=== PATIENT | female | born 1965 ===

== ENCOUNTER → 2020-05-03 11:39 | Outpatient (BNVA) | payer MEDICAID, SELFPAY | PROVIDERS: PCP Internal Medicine; Referring Provider Internal Medicine; Visit Provider Student in an Organized Health Care Education/Training Program | DX: M25.50 Pain in unspecified joint (principal) | CPT/HCPCS: 99212 ==

== ENCOUNTER 2020-05-03 12:21 | Outpatient (REF) | payer MEDICAID, SELFPAY ==
--- NOTE | 2020-05-03 12:41 | XR_ITS ---
EXAMINATION: XR HIP, RIGHT CLINICAL INFORMATION: Pain COMPARISON: None TECHNIQUE: Two views of the right hip. FINDINGS: There is no fracture or dislocation. The right femoral head articulates appropriately with the acetabulum. The joint space is maintained. The right hemipelvis is intact. Surgical clips overlie the right lower quadrant. XR/XR hip RT min 2V IMPRESSION: Normal appearance of the right hip.
[2020-05-03 13:05] LABS: MANUAL DIFF FLAG NO
[2020-05-03 13:09] LABS: Basophils Absolute Auto 0.1 X10*3/uL (0.0-0.2); Basophils Percent Auto 1.2 % (0-2); Eosinophils Absolute Auto 0.1 X10*3/uL (0.0-0.4); Hematocrit 42.2 % (37-47); Hemoglobin 14.3 g/dl (12.0-16.0); Imm Gran Abs Auto 0.02 X10*3/uL (0.00-0.03); Imm Gran Pct Auto 0.2 % (0.0-0.4); Lymphocytes Percent Auto 32.6 % (20-40); Mean Corpuscular HGB Conc 33.9 g/dl (31.0-35.0); Mean Corpuscular Hemoglobin 30.1 pg (27.0-33.0); Mean Corpuscular Volume 88.8 fL (80-98); Mean Platelet Volume 9.6 fL (9.4-12.3); Monocytes Absolute Auto 0.9 X10*3/uL (0.1-1.2); Monocytes Percent Auto 9.9 % (2-11); Neutrophils Percent Auto 55.1 % (45-73); Platelet Count 331 X10*3/uL (160-400); Red Blood Count 4.75 X10*6/uL (4.20-5.50); Red Cell Distribution Width 14.2 % (11.0-16.0); White Blood Count 9.1 X10*3/uL (4.8-10.8)
[2020-05-03 13:45] LABS: Alanine Aminotransferase 17 U/L (0-31); Albumin Level 4.4 g/dL (3.5-5.0); Alkaline Phosphatase 92 U/L (39-117); Anion Gap 13 (12-20); Aspartate Amino Transferase 17 U/L (5-31); Bilirubin Total 0.4 mg/dL (0.0-1.0); Blood Urea Nitrogen 11 mg/dL (9-16); C Reactive Protein 0.42 mg/dL (< or = 0.50); Calcium 9.2 mg/dL (8.4-10.2); Carbon Dioxide 26 mmol/L (22-29); Chloride 104 mmol/L (96-108); Estimated Glomerular Filt Rate > 60; Glucose Random 98 mg/dL (60-115); Potassium 4.6 mmol/l (3.3-5.1); Sodium 138 mmol/L (135-145); Total Protein 7.3 g/dL (6.5-8.0)
[2020-05-03 14:14] LABS: Erythrocyte Sedimentation Rate 23 MM/HR (0-20)
== END 2020-05-03 12:22 | disposition home or self-care (01) ==
LOC: HO.LAB 12:21
PROVIDERS: PCP Internal Medicine; Visit Provider Student in an Organized Health Care Education/Training Program
DX: M25.50 Pain in unspecified joint (principal)
CPT/HCPCS: 36415; 73502; 80053; 85025; 85652; 86140

== ENCOUNTER 2020-08-24 08:52 | Outpatient (REF) | payer MEDICAID, SELFPAY ==
[2020-08-24 10:06] LABS: Estimated Average Glucose 117 mg/dL; Hemoglobin A1c % 5.7 %
[2020-08-24 10:22] LABS: Alanine Aminotransferase 20 U/L (0-31); Albumin Level 4.5 g/dL (3.5-5.0); Alkaline Phosphatase 90 U/L (39-117); Anion Gap 18 (12-20); Aspartate Amino Transferase 18 U/L (5-31); Bilirubin Total 0.5 mg/dL (0.0-1.0); Blood Urea Nitrogen 16 mg/dL (9-16); Calcium 9.5 mg/dL (8.4-10.2); Carbon Dioxide 27 mmol/L (22-29); Chloride 100 mmol/L (96-108); Cholesterol 234 mg/dL; Estimated Glomerular Filt Rate > 60; Glucose Random 110 mg/dL (60-115); HDL Cholesterol 49 mg/dL; LDL Cholesterol Calculated 160 mg/dl; Potassium 3.7 mmol/L (3.3-5.1); Sodium 141 mmol/L (135-145); Total Protein 7.6 g/dL (6.5-8.0); Triglycerides 127 mg/dL
== END 2020-08-24 08:53 | disposition home or self-care (01) ==
LOC: HO.LAB 08:52
PROVIDERS: PCP Internal Medicine; Visit Provider Internal Medicine
DX: E78.00 Pure hypercholesterolemia, unspecified (principal); I10 Essential (primary) hypertension; J45.909 Unspecified asthma, uncomplicated; M94.0 Chondrocostal junction syndrome [Tietze]
CPT/HCPCS: 36415; 80053; 80061; 83036

== ENCOUNTER 2020-10-05 14:58 | Outpatient (REF) | payer MEDICAID, SELFPAY ==
--- NOTE | ~2020-10-05 | MM_ITS ---
EXAMINATION: MM SCREENING DIGITAL BREAST TOMOSYNTHESIS, BILATERAL CLINICAL INFORMATION: Screening. Asymptomatic. The lifetime risk of breast cancer based on the Tyrer-Cuzick Model is 10%. COMPARISON: Mammography: 01/04/2018, 09/10/2016, 08/29/2015 TECHNIQUE: Digital breast tomosynthesis is performed in both the craniocaudal and mediolateral oblique views along with computer-aided detection (CAD). Synthesized 2D images are generated from the tomosynthesis. FINDINGS: There are scattered areas of fibroglandular density (ACR BI-RADS breast composition Category b). There are no significant masses, abnormal calcifications, or other abnormalities. The axilla and skin contours are unremarkable. MM/MM tomosynthesis screening BI IMPRESSION: No mammographic evidence of malignancy. ASSESSMENT: BI-RADS 1: Negative RECOMMENDATION: Routine annual mammography screening. This patient's information was entered into a reminder system with a target due date for their next mammogram.
== END 2020-10-05 14:59 | disposition home or self-care (01) ==
LOC: HO.MAMMO 14:58
PROVIDERS: PCP Internal Medicine; Visit Provider Internal Medicine
DX: Z12.31 Encounter for screening mammogram for malignant neoplasm of breast (principal)
CPT/HCPCS: 77063; 77067

== ENCOUNTER → 2020-10-12 15:47 | Outpatient (BNVA) | payer MEDICAID, SELFPAY | PROVIDERS: PCP Internal Medicine; Visit Provider Student in an Organized Health Care Education/Training Program | DX: M47.812 Spondylosis without myelopathy or radiculopathy, cervical region (principal) | CPT/HCPCS: 99212 ==

== ENCOUNTER 2020-11-29 13:46 | Outpatient (REF) | payer MEDICAID, SELFPAY ==
[2020-11-29 14:10] LABS: MANUAL DIFF FLAG NO
[2020-11-29 14:12] LABS: Basophils Absolute Auto 0.1 X10*3/uL (0.0-0.2); Basophils Percent Auto 0.9 % (0-2); Eosinophils Absolute Auto 0.1 X10*3/uL (0.0-0.4); Hematocrit 41.8 % (37-47); Imm Gran Abs Auto 0.02 X10*3/uL (0.00-0.03); Imm Gran Pct Auto 0.2 % (0.0-0.4); Lymphocytes Absolute Auto 3.6 X10*3/uL (1.2-4.9); Lymphocytes Percent Auto 33.5 % (20-40); Mean Corpuscular HGB Conc 33.5 g/dl (31.0-35.0); Mean Corpuscular Hemoglobin 30.4 pg (27.0-33.0); Mean Corpuscular Volume 90.7 fL (80-98); Mean Platelet Volume 9.4 fL (9.4-12.3); Monocytes Percent Auto 9.6 % (2-11); Neutrophils Absolute Auto 5.9 X10*3/uL (2.0-8.3); Neutrophils Percent Auto 54.8 % (45-73); Platelet Count 350 X10*3/uL (160-400); Red Blood Count 4.61 X10*6/uL (4.20-5.50); Red Cell Distribution Width 14.2 % (11.0-16.0); White Blood Count 10.7 X10*3/uL (4.8-10.8)
[2020-11-29 14:33] LABS: Estimated Average Glucose 114 mg/dL; Hemoglobin A1c % 5.6 %
[2020-11-29 14:38] LABS: Alanine Aminotransferase 14 U/L (0-31); Albumin Level 4.3 g/dL (3.5-5.0); Alkaline Phosphatase 104 U/L (39-117); Anion Gap 12 (12-20); Aspartate Amino Transferase 17 U/L (5-31); Bilirubin Total 0.4 mg/dL (0.0-1.0); Blood Urea Nitrogen 14 mg/dL (9-16); Calcium 10.1 mg/dL (8.4-10.2); Carbon Dioxide 28 mmol/L (22-29); Chloride 100 mmol/L (96-108); Cholesterol 213 mg/dL; Estimated Glomerular Filt Rate > 60; Glucose Random 105 mg/dL (60-115); HDL Cholesterol 55 mg/dL; LDL Cholesterol Calculated 140 mg/dl; Potassium 4.2 mmol/L (3.3-5.1); Sodium 136 mmol/L (135-145); Total Protein 7.3 g/dL (6.5-8.0); Triglycerides 90 mg/dL
== END 2020-11-29 13:47 | disposition home or self-care (01) ==
LOC: HO.LAB 13:46
PROVIDERS: PCP Internal Medicine; Visit Provider Internal Medicine
DX: E78.00 Pure hypercholesterolemia, unspecified (principal); H81.12 Benign paroxysmal vertigo, left ear; I10 Essential (primary) hypertension; J30.89 Other allergic rhinitis; J45.909 Unspecified asthma, uncomplicated; M50.13 Cervical disc disorder with radiculopathy, cervicothoracic region
CPT/HCPCS: 36415; 80053; 80061; 83036; 85025

== ENCOUNTER → 2020-12-26 14:54 | Outpatient (BNVA) | payer MEDICAID, SELFPAY | PROVIDERS: PCP Internal Medicine; Visit Provider Nurse Practitioner Family | DX: M47.812 Spondylosis without myelopathy or radiculopathy, cervical region (principal); M79.18 Myalgia, other site | CPT/HCPCS: 99212 ==

== ENCOUNTER → 2021-02-26 14:51 | Outpatient (BNVA) | payer MEDICAID, SELFPAY | PROVIDERS: PCP Internal Medicine; Visit Provider Nurse Practitioner Family | DX: M79.642 Pain in left hand (principal) | CPT/HCPCS: 99212 ==

== ENCOUNTER 2021-04-03 08:39 | Outpatient (REF) | payer MEDICAID, SELFPAY ==
--- NOTE | ~2021-04-03 | XR_ITS ---
EXAMINATION: XR HAND, LEFT CLINICAL INFORMATION: Left hand pain. COMPARISON: None TECHNIQUE: PA, lateral, and oblique views of the left hand. There was point to the first and fifth metacarpals. FINDINGS: The bones and soft tissues are normal. No fracture. Alignment is anatomic. Joint spaces are maintained. No erosions or soft tissue calcifications. XR/XR hand LT min 3V IMPRESSION: Unremarkable left hand.
== END 2021-04-03 08:40 | disposition home or self-care (01) ==
LOC: HO.HOSX 08:39
PROVIDERS: Visit Provider Orthopaedic Surgery
DX: M79.642 Pain in left hand (principal); M79.641 Pain in right hand; R20.0 Anesthesia of skin; R20.2 Paresthesia of skin
CPT/HCPCS: 73130; 99202

== ENCOUNTER 2021-04-23 11:16 | Outpatient (REF) | payer MEDICAID, SELFPAY ==
[2021-04-23 12:17] LABS: Alanine Aminotransferase 16 U/L (0-31); Albumin Level 4.3 g/dL (3.5-5.0); Alkaline Phosphatase 100 U/L (39-117); Anion Gap 10 (12-20); Aspartate Amino Transferase 17 U/L (5-31); Bilirubin Total 0.5 mg/dL (0.0-1.0); Blood Urea Nitrogen 16 mg/dL (9-16); Calcium 9.5 mg/dL (8.4-10.2); Carbon Dioxide 29 mmol/L (22-29); Chloride 104 mmol/L (96-108); Cholesterol 147 mg/dL; Estimated Glomerular Filt Rate > 60; Glucose Random 106 mg/dL (60-115); HDL Cholesterol 52 mg/dL; LDL Cholesterol Calculated 82 mg/dl; Sodium 139 mmol/L (135-145); Triglycerides 69 mg/dL
== END 2021-04-23 11:17 | disposition home or self-care (01) ==
LOC: HO.LAB 11:16
PROVIDERS: PCP Internal Medicine; Visit Provider Internal Medicine
DX: I10 Essential (primary) hypertension (principal)
CPT/HCPCS: 36415; 80053; 80061

== ENCOUNTER → 2021-10-15 13:47 | Outpatient (BNVA) | payer MEDICAID, SELFPAY | PROVIDERS: PCP Internal Medicine; Visit Provider Nurse Practitioner Family | DX: M79.671 Pain in right foot (principal); M79.672 Pain in left foot; M47.812 Spondylosis without myelopathy or radiculopathy, cervical region | CPT/HCPCS: 99212 ==

== ENCOUNTER 2021-12-06 11:46 | Outpatient (REF) | payer MEDICARE, MEDICAID, SELFPAY ==
[2021-12-06 12:00] LABS: MANUAL DIFF FLAG NO
[2021-12-06 13:10] LABS: Basophils Absolute Auto 0.1 X10*3/uL (0.0-0.2); Basophils Percent Auto 1.2 % (0-2); Eosinophils Absolute Auto 0.1 X10*3/uL (0.0-0.4); Eosinophils Percent Auto 0.6 % (0-4); Hematocrit 40.6 % (37.0-47.0); Imm Gran Abs Auto 0.02 X10*3/uL (0.00-0.03); Imm Gran Pct Auto 0.2 % (0.0-0.4); Lymphocytes Absolute Auto 2.6 X10*3/uL (1.2-4.9); Lymphocytes Percent Auto 30.4 % (20-40); Mean Corpuscular HGB Conc 34.5 g/dl (31.0-35.0); Mean Corpuscular Hemoglobin 30.7 pg (27.0-33.0); Mean Platelet Volume 9.9 fL (9.4-12.3); Monocytes Absolute Auto 0.9 X10*3/uL (0.1-1.2); Monocytes Percent Auto 10.5 % (2-11); Neutrophils Absolute Auto 4.8 x10*3/uL (2.0-8.3); Neutrophils Percent Auto 57.1 % (45-73); Platelet Count 310 X10*3/uL (160-400); Red Blood Count 4.56 X10*6/uL (4.20-5.50); Red Cell Distribution Width 14.9 % (11.0-16.0); White Blood Count 8.5 X10*3/uL (4.8-10.8)
[2021-12-06 13:48] LABS: Alanine Aminotransferase 22 U/L (0-31); Albumin Level 4.5 g/dL (3.5-5.0); Alkaline Phosphatase 103 U/L (39-117); Anion Gap 15 (12-20); Aspartate Amino Transferase 21 U/L (5-31); Bilirubin Total 0.6 mg/dL (0.0-1.0); Blood Urea Nitrogen 15 mg/dL (9-16); Calcium 9.7 mg/dL (8.4-10.2); Carbon Dioxide 25 mmol/L (22-29); Chloride 100 mmol/L (96-108); Estimated Glomerular Filt Rate 60; Glucose Random 109 mg/dL (60-115); Potassium 3.7 mmol/L (3.3-5.1); Sodium 136 mmol/L (135-145); Total Protein 7.5 g/dL (6.5-8.0)
[2021-12-06 14:11] LABS: Thyroid Stimulating Hormone 1.54 uIU/mL (0.32-4.0)
== END 2021-12-06 11:47 | disposition home or self-care (01) ==
LOC: HO.LAB 11:46
PROVIDERS: PCP Internal Medicine; Visit Provider Internal Medicine
DX: E78.00 Pure hypercholesterolemia, unspecified (principal); G56.03 Carpal tunnel syndrome, bilateral upper limbs; I10 Essential (primary) hypertension
CPT/HCPCS: 36415; 80053; 84443; 85025

== ENCOUNTER 2021-12-10 13:58 | Outpatient (REF) | payer MEDICARE, MEDICAID, SELFPAY ==
--- NOTE | ~2021-12-10 | MM_ITS ---
EXAMINATION: MM SCREENING DIGITAL BREAST TOMOSYNTHESIS, BILATERAL CLINICAL INFORMATION: Screening. Asymptomatic. The lifetime risk of breast cancer based on the Tyrer-Cuzick Model is 8%. COMPARISON: Mammography: 10/05/2020, 01/04/2018, 09/10/2016 TECHNIQUE: Digital breast tomosynthesis is performed in both the craniocaudal and mediolateral oblique views along with computer-aided detection (CAD). Synthesized 2D images are generated from the tomosynthesis. FINDINGS: There are scattered areas of fibroglandular density (ACR BI-RADS breast composition Category b). There are no significant masses, abnormal calcifications, or other abnormalities. Parenchymal pattern is similar to prior studies. The axilla are unremarkable. No significant changes. MM/MM tomosynthesis screening BI IMPRESSION: No mammographic evidence of malignancy. ASSESSMENT: BI-RADS 1: Negative RECOMMENDATION: Routine annual mammography screening. This patient's information was entered into a reminder system with a target due date for their next mammogram.
== END 2021-12-10 13:59 | disposition home or self-care (01) ==
LOC: HO.MAMMO 13:58
PROVIDERS: PCP Internal Medicine; Visit Provider Internal Medicine
DX: Z12.31 Encounter for screening mammogram for malignant neoplasm of breast (principal)
CPT/HCPCS: 77063; 77067

== ENCOUNTER 2021-12-26 09:13 | Outpatient (REF) | payer MEDICARE, MEDICAID, SELFPAY ==
--- NOTE | 2021-12-26 09:17 | EMG_ITS ---
Bilateral median and ulnar motor and sensory studies were performed, bilateral radial and sensory studies were performed, and paraspinal muscles were tested with a needle. 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 MD HERIBERTO Payne/JUAN RAMON / [id number]
== END 2021-12-26 09:14 | disposition home or self-care (01) ==
LOC: HO.NEURO 09:13
PROVIDERS: Visit Provider Internal Medicine
DX: G56.03 Carpal tunnel syndrome, bilateral upper limbs (principal)
CPT/HCPCS: 95886; 95911

== ENCOUNTER → 2022-01-24 10:45 | Outpatient (BNVA) | payer MEDICARE, MEDICAID, SELFPAY | PROVIDERS: PCP Internal Medicine; Visit Provider Nurse Practitioner Family | DX: M54.2 Cervicalgia (principal); M79.671 Pain in right foot; M79.672 Pain in left foot; M47.812 Spondylosis without myelopathy or radiculopathy, cervical region | CPT/HCPCS: 99212 ==

== ENCOUNTER 2022-01-28 12:58 | Outpatient (REF) | payer MEDICARE, MEDICAID, SELFPAY ==
--- NOTE | ~2022-01-28 | XR_ITS ---
EXAMINATION: XR CERVICAL SPINE CLINICAL INFORMATION: Cervicalgia COMPARISON: Radiographs cervical spine 02/15/2015, MR cervical spine 06/06/2019 TECHNIQUE: Cervical spine is imaged in 6 views. FINDINGS: There is normal cervical lordosis. Vertebral bodies are normal in height. No vertebral compression, spondylolisthesis, destructive process, or prevertebral soft tissue swelling. Odontoid appears intact. No focal disc narrowing or erosive change. Degenerative facet changes are suggested lower cervical spine C6-C7. There is punctate ossification nuchal ligament just superior to C6 posterior spinous process. XR/XR cervical spine 2V IMPRESSION: -No vertebral compression, spondylolisthesis, disc narrowing. -Mild facet degenerative changes lower cervical spine.
[2022-01-28 14:02] LABS: C Reactive Protein 0.55 mg/dL (< or = 0.50)
[2022-01-28 14:17] LABS: Erythrocyte Sedimentation Rate 10 MM/HR (0-20)
== END 2022-01-28 12:59 | disposition home or self-care (01) ==
LOC: HO.LAB 12:58
PROVIDERS: PCP Internal Medicine; Visit Provider Nurse Practitioner Family
DX: M54.2 Cervicalgia (principal); M25.50 Pain in unspecified joint
CPT/HCPCS: 36415; 72040; 85652; 86140

== ENCOUNTER 2022-04-30 10:00 | Outpatient (RCR) | payer MEDICARE, MEDICAID, SELFPAY | END 2022-12-25 13:40 | disposition home or self-care (01) | LOC: HO.PT 10:00 | PROVIDERS: PCP Internal Medicine; Visit Provider Podiatrist | DX: M76.822 Posterior tibial tendinitis, left leg (principal) | CPT/HCPCS: 97035; 97110; 97140; 97162; 97530 ==

== ENCOUNTER → 2022-05-07 14:32 | Outpatient (BNVA) | payer MEDICARE, MEDICAID, SELFPAY | PROVIDERS: PCP Internal Medicine; Visit Provider Orthopaedic Surgery | DX: G56.03 Carpal tunnel syndrome, bilateral upper limbs (principal) | CPT/HCPCS: 99202 ==

== ENCOUNTER → 2022-05-26 14:10 | Outpatient (BNVA) | payer MEDICARE, MEDICAID, SELFPAY | PROVIDERS: PCP Internal Medicine; Referring Provider Internal Medicine; Visit Provider Nurse Practitioner Family | DX: M79.7 Fibromyalgia (principal); M47.812 Spondylosis without myelopathy or radiculopathy, cervical region; M79.671 Pain in right foot; M79.672 Pain in left foot | CPT/HCPCS: 99212 ==

== ENCOUNTER 2022-08-28 09:01 | Outpatient (REF) | payer MEDICARE, MEDICAID, SELFPAY ==
[2022-08-28 10:34] LABS: Alanine Aminotransferase 16 U/L (0-31); Albumin Level 4.1 g/dL (3.5-5.0); Alkaline Phosphatase 89 U/L (39-117); Anion Gap 10 (12-20); Aspartate Amino Transferase 20 U/L (5-31); Bilirubin Total 0.5 mg/dL (0.0-1.0); Blood Urea Nitrogen 16 mg/dL (9-16); Carbon Dioxide 29 mmol/L (22-29); Chloride 106 mmol/L (96-108); Cholesterol 162 mg/dL; Estimated Glomerular Filt Rate > 60; Glucose Random 94 mg/dL (60-115); HDL Cholesterol 55 mg/dL; LDL Cholesterol Calculated 94 mg/dl; Potassium 4.2 mmol/L (3.3-5.1); Sodium 141 mmol/L (135-145); Total Protein 6.6 g/dL (6.5-8.0); Triglycerides 68 mg/dL
[2022-08-30 15:43] LABS: HCV Log PCR <1.18 NOT DETECTED Log IU/mL (NOT DETECTED); HepC Viral Load <15 NOT DETECTED IU/mL (NOT DETECTED)
== END 2022-08-28 09:02 | disposition home or self-care (01) ==
LOC: HO.LAB 09:01
PROVIDERS: PCP Internal Medicine; Visit Provider Internal Medicine
DX: B18.2 Chronic viral hepatitis C (principal); E78.00 Pure hypercholesterolemia, unspecified; G56.03 Carpal tunnel syndrome, bilateral upper limbs; I10 Essential (primary) hypertension; M79.7 Fibromyalgia; Z90.710 Acquired absence of both cervix and uterus
CPT/HCPCS: 36415; 80053; 80061; 87522

== ENCOUNTER 2022-12-29 13:44 | Outpatient (REF) | payer MEDICARE, MEDICAID, SELFPAY ==
[2022-12-29 15:29] LABS: Alanine Aminotransferase 18 U/L (0-31); Albumin Level 4.2 g/dL (3.5-5.0); Alkaline Phosphatase 103 U/L (39-117); Anion Gap 16 (12-20); Aspartate Amino Transferase 23 U/L (5-31); Bilirubin Total 0.5 mg/dL (0.0-1.0); Blood Urea Nitrogen 20 mg/dL (9-16); Calcium 10.1 mg/dL (8.4-10.2); Carbon Dioxide 26 mmol/L (22-29); Chloride 104 mmol/L (96-108); Estimated Glomerular Filt Rate > 60; Glucose Random 93 mg/dL (60-115); Potassium 3.8 mmol/L (3.3-5.1); Sodium 142 mmol/L (135-145); Total Protein 7.2 g/dL (6.5-8.0)
== END 2022-12-29 13:45 | disposition home or self-care (01) ==
LOC: HO.LAB 13:44
PROVIDERS: PCP Internal Medicine; Visit Provider Internal Medicine
DX: I10 Essential (primary) hypertension (principal); E78.00 Pure hypercholesterolemia, unspecified
CPT/HCPCS: 36415; 80053

== ENCOUNTER 2023-02-18 09:52 | Outpatient (AMB) | payer MEDICARE, MEDICAID, SELFPAY ==
[2023-02-18 10:25] VITALS: BP 128/76; PULSE 70; TEMP 36.6; O2SAT 97; BMI 40.5
--- NOTE | 2023-02-18 10:25 | MHC.OFFVIS ---
Intake Vital Signs 02/18/23 10:25 Height 4 ft 10 in Weight 193 lb 9.054 oz BMI 40.5 BP 128/76 Blood Pressure Location Rt brachial Position Sitting Pulse 70 Pulse Source Pulse Oximeter Temp 97.9 F Temp Source Skin Pulse Oximetry (%) 97 Intake Visit Reasons: Osteoarthritis Intake Note: Pt seen today for OA follow up. Engineer Technician Required: Yes Engineer Technician Name: Mariano [id number] Accompanied by: Self / Same As Patient Allergies No Known Allergies [No Known Allergies*] Allergy (Verified 02/18/23 10:30) Medication List - Last Reconciled 02/18/23 by Linda Ellis MD acetaminophen ER (Tylenol Arthritis Pain) 650 mg PO Q8H PRN albuterol sulfate 90 mcg/actuation 2 puffs inhalation Q6H PRN atorvastatin 20 mg PO BEDTIME budesonide 90 mcg/actuation (Pulmicort Flexhaler) 0 inhalations inhalation bupropion HCl 150 mg PO QAM duloxetine 30 mg PO BEDTIME duloxetine 60 mg PO QAM fluticasone propionate 50 mcg/actuation sprays intranasal fluticasone propionate 50 mcg/actuation (Allergy Relief (fluticasone)) 1 spray intranasal DAILY gabapentin 800 mg PO BEDTIME naproxen 500 mg PO BID PRN omeprazole 20 mg PO DAILY quetiapine 50 mg PO BEDTIME valsartan-hydrochlorothiazide 320-25 mg 1 tab PO DAILY HPI HPI Comments History of Present Illness Details 57-year-old female with fibromyalgia returns for follow-up. She is currently on gabapentin 800 mg nightly and Cymbalta 60 mg daily. States that her back pain has been more severe recently. The pain is in the lower back and across her weights, radiates to her right hip and light leg. She bought a brace for her back a couple of days ago which is helping somewhat. She also has diffuse pain everywhere. Mentions that she has bilateral carpal tunnel syndrome and needs surgery but she was unable to schedule it as she is in the process of moving [facility] Medical History HTN (hypertension) Surgical History Hx of abdominal hysterectomy Hx of appendectomy Hx of section Hx of hernia repair Hx of tubal ligation Family History Father Diabetes HTN (hypertension) Mother Breast cancer Osteoporosis Diabetes HTN (hypertension) Brother HTN (hypertension) Social History Alcohol intake: never Patient Tobacco Use Status: Never used Tobacco Current occupational status: disabled Current occupation: rt hand Review of Systems Musc Reports back pain, Reports arthralgias, Reports radiating pain into limb and Reports stiffness Physical Exam Vital Signs: Last Vital Signs Temp 97.9 F 02/18/23 10:25 Pulse 70 02/18/23 10:25 BP 128/76 02/18/23 10:25 Pulse Ox 97 02/18/23 10:25 BMI result Body Mass Index 40.5 Const General: cooperative, healthy appearing and comfortable Nutritional Appearance: obese morbidly obese Orientation/consciousness: patient oriented x3 Limitations: no limitations HEENT Head: Yes normocephalic and Yes atraumatic Mouth: moist mucous membranes Resp Effort & Inspection: normal respiratory effort and able to speak in complete sentences Auscultation: clear to auscultation bilaterally Cardio Rate: regular rate Rhythm: regular rhythm Skin General skin exam: no rashes or lesions noted Neuro General: patient oriented x3 Extrem Other: Diffuse fibromyalgia tender points Negative straight leg raise test bilaterally Assessment & Plan Assessment & Plan (1) Fibromyalgia: Code(s): M79.7 - Fibromyalgia Plan: 57-year-old female with fibromyalgia returns for follow-up. She is on gabapentin 800 mg nightly and duloxetine 60 mg. Duloxetine is prescribed by psychiatrist. Patient can continue same meds. (2) Lumbar radicular pain: Code(s): M54.16 - Radiculopathy, lumbar region Plan: Her most pressing concern today is lower back pain radiating across the waist and towards her right hip. I referred patient to pain management for further evaluation Plan I spent 26 minutes reviewing patient's chart, evaluating patient, placing orders, counseling patient and documenting in the chart Orders: Referrals Pain Management Referral M54.16 - Radiculopathy, lumbar region Coding Level of Care Code Est Pt Level 4 (34075) Diagnoses Fibromyalgia M79.7 Lumbar radicular pain M54.16
== END 2023-02-18 11:05 | disposition home or self-care (01) ==
PROVIDERS: PCP Internal Medicine; Visit Provider Student in an Organized Health Care Education/Training Program
DX: M79.7 Fibromyalgia (principal); M54.16 Radiculopathy, lumbar region
CPT/HCPCS: 99214

== ENCOUNTER → 2023-02-18 09:52 | Outpatient (BNVA) | payer MEDICARE, MEDICAID, SELFPAY | PROVIDERS: PCP Internal Medicine; Visit Provider Student in an Organized Health Care Education/Training Program | DX: M79.7 Fibromyalgia (principal); M54.16 Radiculopathy, lumbar region | CPT/HCPCS: 99212 ==

== ENCOUNTER → 2023-02-20 13:37 | Outpatient (BNVA) | payer MEDICARE, MEDICAID, SELFPAY | PROVIDERS: PCP Internal Medicine; Visit Provider Registered Nurse Emergency | DX: M16.11 Unilateral primary osteoarthritis, right hip (principal); M70.61 Trochanteric bursitis, right hip; M79.18 Myalgia, other site | CPT/HCPCS: 99212 ==

== ENCOUNTER 2023-02-20 13:38 | Outpatient (AMB) | payer MEDICARE, MEDICAID, SELFPAY ==
[2023-02-20 13:47] VITALS: BP 142/82; PULSE 70; RESP 16; O2SAT 97; BMI 39.5
--- NOTE | 2023-02-20 13:47 | A.OFFVIS_ITS ---
Intake Vital Signs 02/20/23 13:47 Height 4 ft 10 in Weight 189 lb BMI 39.5 BP 142/82 H Blood Pressure Location Lt brachial Position Sitting Respiration 16 Pulse 70 Pulse Source Pulse Oximeter Pulse Oximetry (%) 97 Oxygen Delivery Method Room Air Intake Visit Reasons: LUMBAR RADICULOPATHY Director Of Federal Sales Required: Yes Director Of Federal Sales Name: Keli Cochran Allergies No Known Allergies [No Known Allergies*] Allergy (Verified 02/20/23 13:48) HPI HPI Comments History of Present Illness Details Sandi presents back to the office today for evaluation and management of right hip pain. Patient reports she has been suffering with right hip pain for several weeks that is progressively worsening. She states the pain is making it difficult to walk. She is usually very active and this pain is limiting her activities significantly. Pain today is 7/10, sharp, severe and aching. Patient has tried PT but pain was exacerbated. She is currently taking naproxyn and gabapentin prescribed by rheum for her fibromyalgia that helps the pain to some extent. She has also tried topical lidocaine patches with some relief. Patient also c/o thoracic back pain across middle of under area of her bra strap. She reports having this pain for many years, this is her usual back pain. She saw Dr Walsh in the past for this and was given Tizanidine that helped with the pain. Prior: Sandi returns with new complaints of left hand pain.? She states this pain started last week without any inciting events.? She has never experienced this pain before? but notes having a similar pain years ago up the right hand, which resolved spontaneously.? She notes most pain is on the lateral aspect of the 5th digit as well as the joints of the 4th and 5th digit.? She reports intermittent swelling of the joints without any erythema.? She denies any numbness or tingling of left upper extremity.? She is currently using NSAIDs with good effect but not long-lasting relief.? She does report using a brace, given to her by Rheumatology that has been helpful. PRIOR: Sandi returns to the office with similar complaints of cervical and lumbar discomfort. She also reports persistent muscle tightness throughout her mid to low back. She was previously evaluated by Dr. Walsh, who had offered her injections but she was not interested. She presents today to see what other treatment options can be offered. She has been using some OTC topicals as well as naproxen and neurontin with moderate effect. She states great improvement with lidocaine patches that her friend had given her. PRIOR: ? Sandi is very pleasant 53 years old Maltese-speaking female who is in my office complaining on pain in the cervical and thoracic spine. Pain on set is gradual. No incident or accident no trauma. History of scoliosis. Pain is getting worse over the years. Pain is constant without changes she feels it in horizontal as well as in vertical position pain is being increased when she tries to lift up some heavy loads. She reports that this pain started many years ago. She reported that she never had any specialist care for this pain she was many years ago diagnosed with scoliosis, she never received any injections. She had x-ray many years ago demonstrating scoliosis. To treat her pain she tried salon spa Lidocaine 4% which helped her pain significantly. She also takes gabapentin 600 mg twice a day and Naprosyn 500 mg also twice a day and those medications help her pain. She had physical therapy in the past which was helping for her pain but the last physical therapy she had was 4 years ago she never had chiropractic manipulations or acute punctures. She never had any injections done. 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 She never had MRI of her neck. ? Her past medical history significant for asthma hypertension elevated cholesterol history of hepatitis-C which was treated with Harvoni. She denies history of kidney problems or endocrine system problems. She denies any problems with central neural system. No problems with heart and lungs. ? Her past surgical history significant for appendectomy x3 bilateral tubal ligation and hysterectomy. Allergies none. ? She denies smoking drinking alcohol using recreational drugs. ? PFSH Medical History HTN (hypertension) Surgical History Hx of abdominal hysterectomy Hx of appendectomy Hx of section Hx of hernia repair Hx of tubal ligation Family History Father Diabetes HTN (hypertension) Mother Breast cancer Osteoporosis Diabetes HTN (hypertension) Brother HTN (hypertension) Social History Alcohol intake: never Patient Tobacco Use Status: Never used Tobacco Current occupational status: disabled Current occupation: rt hand Review of Systems Const All systems reviewed & are unremarkable except as noted in HPI and below Physical Exam Vital Signs: Last Vital Signs Pulse 70 02/20/23 13:47 Resp 16 02/20/23 13:47 BP 142/82 H 02/20/23 13:47 Pulse Ox 97 02/20/23 13:47 Oxygen Delivery Method Room Air 02/20/23 13:47 BMI result Body Mass Index 39.5 General: awake, alert, oriented. Answers questions appropriately. Skin: warm, dry, intact HEENT: Normocephalic. Hearing intact. Cardiac: External chest normal in appearance. Respiratory: No cough, audible wheezing or stridor. Abdomen: without gross distension. MS: No obvious swelling or deformities. Able to stand on bilateral tiptoes and bilateral heels.? Able to transition from sit to stand unassisted. Ambulates with bilaterally normal heel strike and toe off Tender to palpation over GTB. increased pain with I/E rotation of Right hip Neurological: Oriented to person, place, time and situation. Psychiatric: Appropriate mood and affect. Good judgment and insight. Assessment & Plan Assessment & Plan (1) Arthritis of right hip: Code(s): M16.11 - Unilateral primary osteoarthritis, right hip (2) Trochanteric bursitis, right hip: Code(s): M70.61 - Trochanteric bursitis, right hip (3) Myofascial pain syndrome of thoracic spine: Code(s): M79.18 - Myalgia, other site Plan Sandi presented back to the office today for evaluation and management of right hip pain. She has exhausted conservative treatment including topical lidocaine patches, NSAIDs and PT. Xray right hip ordered to r/o bony abnormality. Tizanidine 2mg po BID as needed. Patient instructed on use, no driving or alcohol while taking. May cause drowsiness. Discussed options for treatment including diagnostic interventional testing, steroid injections, peripheral nerve stimulation with Sprint, RFA and more permanent neuromodulation. Patient would like to proceed with injection. Will schedule for Fluoroscopy guided Right intra-articular hip and Right GTB injection with local anesthetic. All questions and concerns have been answered and patient agrees with the plan. Follow up after injections and sooner if needed. Orders: Orders XR hip RT min 2V Today M16.11 - Unilateral primary osteoarthritis, right hip Medications: New tizanidine 2 mg PO BID PRN 60 tabs 0RF muscle spasticity Coding Level of Care Code Est Pt Level 4 (02935) Diagnoses Arthritis of right hip M16.11 Trochanteric bursitis, right hip M70.61 Myofascial pain syndrome of thoracic spine M79.18
== END 2023-02-20 14:02 | disposition home or self-care (01) ==
PROVIDERS: PCP Internal Medicine; Visit Provider Registered Nurse Emergency
DX: M16.11 Unilateral primary osteoarthritis, right hip (principal); M70.61 Trochanteric bursitis, right hip; M79.18 Myalgia, other site
CPT/HCPCS: 99214

== ENCOUNTER 2023-02-25 10:29 | Outpatient (REF) | payer MEDICARE, MEDICAID, SELFPAY ==
--- NOTE | ~2023-02-25 | XR_ITS ---
EXAMINATION: XR HIP, RIGHT CLINICAL INFORMATION: Unilateral primary osteoarthritis right hip. COMPARISON: None available. TECHNIQUE: 2 views of the right hip. AP view pelvis. FINDINGS: AP View Pelvis: There is normal symmetry of bilateral hip joints and SI joints. No visible acute fracture, dislocation or subluxation. Postsurgical changes are seen along the right midabdomen. Right Hip: There is normal right hip joint space. No visible acute fracture, dislocation or subluxation. No loose bodies or bony erosive changes. No soft tissue abnormality. XR/XR hip RT w PEL1V IMPRESSION: Unremarkable AP pelvis and right hip exam.
== END 2023-02-25 10:30 | disposition home or self-care (01) ==
LOC: HO.XRAY 10:29
PROVIDERS: PCP Internal Medicine; Visit Provider Registered Nurse Emergency
DX: M16.11 Unilateral primary osteoarthritis, right hip (principal)
CPT/HCPCS: 73502

== ENCOUNTER 2023-03-17 06:03 | Outpatient (REF) | payer MEDICARE, MEDICAID, SELFPAY ==
--- NOTE | ~2023-03-17 | FL_ITS ---
EXAMINATION: XR FLUOROSCOPY WITH IMAGES CLINICAL INFORMATION: Trochanteric bursitis, right hip. COMPARISON: None available. TECHNIQUE: Fluoroscopy Supervised By: Dr. Hayes Walsh. Fluoroscopy Time: 0.2 minutes. Cumulative Dose: 5.64 mGy. DAP: 0.0981 Gycm2. Images: 3. FINDINGS: Images demonstrate needle placement and contrast injection of the right hip joint and needle placement adjacent to the right greater trochanter. FL/FL guidance in treatment room IMPRESSION: Fluoroscopy guidance for pain management procedure
== END 2023-03-17 06:04 | disposition home or self-care (01) ==
LOC: CF 06:03
PROVIDERS: Visit Provider Anesthesiology
DX: M70.61 Trochanteric bursitis, right hip (principal); M16.11 Unilateral primary osteoarthritis, right hip; M79.18 Myalgia, other site
CPT/HCPCS: 20610; J3301

== ENCOUNTER 2023-03-17 10:26 | Outpatient (AMB) | payer MEDICARE, MEDICAID, SELFPAY ==
[2023-03-17 10:34] VITALS: BP 126/88; PULSE 65; RESP 16; O2SAT 98; BMI 39.5
--- NOTE | 2023-03-17 10:34 | A.OFFVIS_ITS ---
Intake Vital Signs 03/17/23 10:34 03/17/23 11:26 Height 4 ft 10 in 4 ft 10 in Weight 189 lb 189 lb BMI 39.5 39.5 BP 126/88 132/70 Blood Pressure Location Rt brachial Rt brachial Position Sitting Sitting Respiration 16 16 Pulse 65 60 Pulse Source Pulse Oximeter Pulse Oximeter Pulse Oximetry (%) 98 99 Oxygen Delivery Method Room Air Room Air Comment pre-op post-op Intake Visit Reasons: RIGHT INTRA-ARTIC HIP AND RIGHT GTB STEROID INJ Allergies No Known Allergies [No Known Allergies*] Allergy (Verified 03/17/23 10:35) PFSH Medical History HTN (hypertension) Surgical History Hx of abdominal hysterectomy Hx of appendectomy Hx of section Hx of hernia repair Hx of tubal ligation Family History Father Diabetes HTN (hypertension) Mother Breast cancer Osteoporosis Diabetes HTN (hypertension) Brother HTN (hypertension) Social History Alcohol intake: never Patient Tobacco Use Status: Never used Tobacco Current occupational status: disabled Current occupation: rt hand Physical Exam Vital Signs: Last Vital Signs Pulse 60 03/17/23 11:26 Resp 16 03/17/23 11:26 BP 132/70 03/17/23 11:26 Pulse Ox 99 03/17/23 11:26 Oxygen Delivery Method Room Air 03/17/23 11:26 BMI result Body Mass Index 39.5 Assessment & Plan Assessment & Plan (1) Arthritis of right hip: Code(s): M16.11 - Unilateral primary osteoarthritis, right hip Plan: Right hip steroid injection and right trochanteric bursa injection. Informed consent was explained to the patient. All questions were explained and answered. The patient was taken inside of the operating room where she was positioned left lateral decubitus on operating table.. Time-out was performed delineating patient's name and date of , correct site, side, the nature of the procedure, patient's allergy, preoperative antibiotic if needed, need for VT prophylaxis.. All operating room staff was participating in OR time-out p rocedure. Right hip area of the patient was prepped with ChloraPrep and draped with sterile towels. C-arm was brought over the operating field and picture of left and right lateral views of the bilateral hip joints were delineated on the screen. The smaller joint silhouette was chosen as the target. Projection of the right trochanter to the skin was chosen as the initial needle insertion point. After that the skin and subcutaneous tissues was anesthetized with 2% lidocaine 2.5 mL. 22 gauge 5 in long needle was inserted through the skin and started to advance to the joint space under intermittent lateral and anterior posterior views. When needle entered the capsule of the joint small amount of the contrast was injected delineating intra-articular space. After that treatment solution containing 5 cc of ropivacaine 0.5% and 20 mg of Kenalog was injected into the joint. The needle was withdrawn to the level of the right trochanteric bursa and injection of the ropivacaine 0.5% 5 mls mixed with kenalog 20 mg was injected into the area. After that the needle was removed and sterile dressing was applied. The patient tolerated procedure well. (2) Trochanteric bursitis, right hip: Code(s): M70.61 - Trochanteric bursitis, right hip (3) Myofascial pain syndrome of thoracic spine: Code(s): M79.18 - Myalgia, other site Plan Sandi presented back to the office today for evaluation and management of right hip pain. She has exhausted conservative treatment including topical lidocaine patches, NSAIDs and PT. Xray right hip ordered to r/o bony abnormality. Tizanidine 2mg po BID as needed. Patient instructed on use, no driving or alcohol while taking. May cause drowsiness. Discussed options for treatment including diagnostic interventional testing, steroid injections, peripheral nerve stimulation with Sprint, RFA and more permanent neuromodulation. Patient would like to proceed with injection. Will schedule for Fluoroscopy guided Right intra-articular hip and Right GTB injection with local anesthetic. All questions and concerns have been answered and patient agrees with the plan. Follow up after injections and sooner if needed. Orders: Orders FL guidance in treatment room Today M16.11 - Unilateral primary osteoarthritis, right hip, M70.61 - Trochanteric bursitis, right hip Coding Level of Care Code Procedure Only Diagnoses Arthritis of right hip M16.11 Trochanteric bursitis, right hip M70.61 Myofascial pain syndrome of thoracic spine M79.18
[2023-03-17 11:26] VITALS: BP 132/70; PULSE 60; RESP 16; O2SAT 99; BMI 39.5
== END 2023-03-17 11:17 | disposition home or self-care (01) ==
LOC: HO.PMCPRC 10:26
PROVIDERS: PCP Internal Medicine; Visit Provider Anesthesiology
DX: M16.11 Unilateral primary osteoarthritis, right hip (principal); M70.61 Trochanteric bursitis, right hip; M79.18 Myalgia, other site
CPT/HCPCS: 20610; 77002

== ENCOUNTER 2023-03-30 11:14 | Outpatient (REF) | payer OTHER, SELFPAY | END 2023-03-30 11:15 | disposition home or self-care (01) | LOC: HO.LAB 11:14 | PROVIDERS: PCP Internal Medicine; Visit Provider Internal Medicine | DX: E78.00 Pure hypercholesterolemia, unspecified (principal); I10 Essential (primary) hypertension | CPT/HCPCS: 36415; 80053; 80061; 85025 ==

== ENCOUNTER 2023-04-09 13:25 | Outpatient (REF) | payer OTHER, SELFPAY ==
--- NOTE | ~2023-04-09 | MM_ITS ---
EXAMINATION: MM SCREENING DIGITAL BREAST TOMOSYNTHESIS, BILATERAL CLINICAL INFORMATION: Screening. Asymptomatic. COMPARISON: Mammography: 12/10/2021, 10/05/2020, 01/04/2018, 09/10/2016 TECHNIQUE: Digital breast tomosynthesis is performed in both the craniocaudal and mediolateral oblique views along with computer-aided detection (CAD). Synthesized 2D images are generated from the tomosynthesis. FINDINGS: There are scattered areas of fibroglandular density (ACR BI-RADS breast composition Category b). There are no suspicious masses, suspicious grouped calcifications, or areas of architectural distortion in either breast. The parenchymal pattern is stable from prior exams. There are no skin or axillary changes. MM/MM tomosynthesis screening BI IMPRESSION: No mammographic evidence of malignancy. ASSESSMENT: BI-RADS BI-RADS 1 - Negative RECOMMENDATION: Routine annual mammography screening. 1 year F/U This examination should not preclude the clinical evaluation of a suspicious palpable abnormality. This patient's information was entered into a reminder system with a target due date for their next mammogram.
== END 2023-04-09 13:26 | disposition home or self-care (01) ==
LOC: HO.MAMMO 13:25
PROVIDERS: PCP Internal Medicine; Visit Provider Internal Medicine
DX: Z12.31 Encounter for screening mammogram for malignant neoplasm of breast (principal)
CPT/HCPCS: 77063; 77067

== ENCOUNTER → 2023-04-09 14:00 | Outpatient (BNV) | payer OTHER, SELFPAY | PROVIDERS: PCP Internal Medicine; Visit Provider Radiology Diagnostic Radiology | DX: Z12.31 Encounter for screening mammogram for malignant neoplasm of breast (principal) | CPT/HCPCS: 77063; 77067 ==

== ENCOUNTER 2023-04-14 10:40 | Outpatient (AMB) | payer OTHER, MEDICAID, SELFPAY ==
[2023-04-14 10:49] VITALS: BP 124/70; PULSE 75; RESP 14; BMI 39.9
--- NOTE | 2023-04-14 10:49 | MHC.OFFVIS ---
Intake Vital Signs 04/14/23 10:49 Height 4 ft 10 in Weight 191 lb BMI 39.9 BP 124/70 Blood Pressure Location Lt brachial Position Sitting Respiration 14 Pulse 75 Pulse Source Pulse Oximeter Intake Visit Reasons: RT INTRA-ARTICULAR HIP AND RT GTB INJECTIONS Cooling Room Attendant Required: Yes Cooling Room Attendant Name: Abdullahi #[id number] Allergies No Known Allergies [No Known Allergies*] Allergy (Verified 04/14/23 10:50) Medication List - Last Reconciled 04/14/23 by Taryn Correia LPN acetaminophen ER (Tylenol Arthritis Pain) 650 mg PO Q8H PRN albuterol sulfate 90 mcg/actuation 2 puffs inhalation Q6H PRN atorvastatin 20 mg PO BEDTIME budesonide 90 mcg/actuation (Pulmicort Flexhaler) 0 inhalations inhalation bupropion HCl 150 mg PO QAM duloxetine 30 mg PO BEDTIME duloxetine 60 mg PO QAM fluticasone propionate 50 mcg/actuation (Allergy Relief (fluticasone)) 1 spray intranasal DAILY gabapentin 800 mg PO BEDTIME naproxen 500 mg PO BID PRN omeprazole 20 mg PO DAILY quetiapine 50 mg PO BEDTIME tizanidine 2 mg PO BID PRN valsartan-hydrochlorothiazide 320-25 mg 1 tab PO DAILY HPI HPI Comments History of Present Illness Details Sandi presents back to the office today for follow up 1 month s/p right hip intraarticular and gtb injections. Patient reports improvement in pain, function and mobility since the injections. Pain prior to the injections reported as 10/10, she states now pain is 5/10. Some days are better than others. She does state that the muscle relaxer provides some relief of her pain, she is requesting refill today. Prior: Sandi presents back to the office today for evaluation and management of right hip pain. Patient reports she has been suffering with right hip pain for several weeks that is progressively worsening. She states the pain is making it difficult to walk. She is usually very active and this pain is limiting her activities significantly. Pain today is 7/10, sharp, severe and aching. Patient has tried PT but pain was exacerbated. She is currently taking naproxyn and gabapentin prescribed by rheum for her fibromyalgia that helps the pain to some extent. She has also tried topical lidocaine patches with some relief. Patient also c/o thoracic back pain across middle of under area of her bra strap. She reports having this pain for many years, this is her usual back pain. She saw Dr Walsh in the past for this and was given Tizanidine that helped with the pain. Prior: Sandi returns with new complaints of left hand pain.? She states this pain started last week without any inciting events.? She has never experienced this pain before? but notes having a similar pain years ago up the right hand, which resolved spontaneously.? She notes most pain is on the lateral aspect of the 5th digit as well as the joints of the 4th and 5th digit.? She reports intermittent swelling of the joints without any erythema.? She denies any numbness or tingling of left upper extremity.? She is currently using NSAIDs with good effect but not long-lasting relief.? She does report using a brace, given to her by Rheumatology that has been helpful. PRIOR: Sandi returns to the office with similar complaints of cervical and lumbar discomfort. She also reports persistent muscle tightness throughout her mid to low back. She was previously evaluated by Dr. Walsh, who had offered her injections but she was not interested. She presents today to see what other treatment options can be offered. She has been using some OTC topicals as well as naproxen and neurontin with moderate effect. She states great improvement with lidocaine patches that her friend had given her. PRIOR: ? Sandi is very pleasant 53 years old English-speaking female who is in my office complaining on pain in the cervical and thoracic spine. Pain on set is gradual. No incident or accident no trauma. History of scoliosis. Pain is getting worse over the years. Pain is constant without changes she feels it in horizontal as well as in vertical position pain is being increased when she tries to lift up some heavy loads. She reports that this pain started many years ago. She reported that she never had any specialist care for this pain she was many years ago diagnosed with scoliosis, she never received any injections. She had x-ray many years ago demonstrating scoliosis. To treat her pain she tried salon spa Lidocaine 4% which helped her pain significantly. She also takes gabapentin 600 mg twice a day and Naprosyn 500 mg also twice a day and those medications help her pain. She had physical therapy in the past which was helping for her pain but the last physical therapy she had was 4 years ago she never had chiropractic manipulations or acute punctures. She never had any injections done. 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 She never had MRI of her neck. ? Her past medical history significant for asthma hypertension elevated cholesterol history of hepatitis-C which was treated with Harvoni. She denies history of kidney problems or endocrine system problems. She denies any problems with central neural system. No problems with heart and lungs. ? Her past surgical history significant for appendectomy x3 bilateral tubal ligation and hysterectomy. Allergies none. ? She denies smoking drinking alcohol using recreational drugs. ? PFSH Medical History HTN (hypertension) Surgical History Hx of abdominal hysterectomy Hx of appendectomy Hx of section Hx of hernia repair Hx of tubal ligation Family History Father Diabetes HTN (hypertension) Mother Breast cancer Osteoporosis Diabetes HTN (hypertension) Brother HTN (hypertension) Social History Alcohol intake: never Patient Tobacco Use Status: Never used Tobacco Current occupational status: disabled Current occupation: rt hand Review of Systems Const All systems reviewed & are unremarkable except as noted in HPI and below Physical Exam Vital Signs: Last Vital Signs Pulse 75 04/14/23 10:49 Resp 14 04/14/23 10:49 BP 124/70 04/14/23 10:49 BMI result Body Mass Index 39.9 General: awake, alert, oriented. Answers questions appropriately. Skin: warm, dry, intact HEENT: Normocephalic. Hearing intact. Cardiac: External chest normal in appearance. Respiratory: No cough, audible wheezing or stridor. Abdomen: without gross distension. MS: No obvious swelling or deformities. Able to transition from sit to stand unassisted. Ambulates with bilaterally normal heel strike and toe off Full ROM right hip Neurological: Oriented to person, place, time and situation. Psychiatric: Appropriate mood and affect. Good judgment and insight. Results Reviewed Results Reviewed: 02/25/2023 XR/XR hip RT w PEL1V FINDINGS: AP View Pelvis: There is normal symmetry of bilateral hip joints and SI joints. No visible acute fracture, dislocation or subluxation. Postsurgical changes are seen along the right midabdomen. Right Hip: There is normal right hip joint space. No visible acute fracture, dislocation or subluxation. No loose bodies or bony erosive changes. No soft tissue abnormality. IMPRESSION: Unremarkable AP pelvis and right hip exam. Assessment & Plan Assessment & Plan (1) Arthritis of right hip: Code(s): M16.11 - Unilateral primary osteoarthritis, right hip (2) Trochanteric bursitis, right hip: Code(s): M70.61 - Trochanteric bursitis, right hip (3) Myofascial pain syndrome of thoracic spine: Code(s): M79.18 - Myalgia, other site Plan Sandi presented back to the office today for follow up, 1 month s/p right hip and right GTB injections. She reports improvement in pain, function and moblity since the procedure. Tizanidine 2mg po BID as needed. Patient instructed on use, no driving or alcohol while taking. May cause drowsiness. Refill sent today. All questions and concerns have been answered and patient agrees with the plan. Advised patient injections may be repeated every 3 months. Follow up when pain returns, sooner if needed. Medications: Refilled tizanidine 2 mg PO BID PRN 60 tabs 0RF muscle spasticity Coding Level of Care Code Est Pt Level 3 (88936) Diagnoses Arthritis of right hip M16.11 Trochanteric bursitis, right hip M70.61 Myofascial pain syndrome of thoracic spine M79.18
== END 2023-04-14 11:10 | disposition home or self-care (01) ==
PROVIDERS: PCP Internal Medicine; Visit Provider Registered Nurse Emergency
DX: M16.11 Unilateral primary osteoarthritis, right hip (principal); M70.61 Trochanteric bursitis, right hip; M79.18 Myalgia, other site
CPT/HCPCS: 99213

== ENCOUNTER → 2023-04-14 10:40 | Outpatient (BNVA) | payer OTHER, SELFPAY | PROVIDERS: PCP Internal Medicine; Visit Provider Registered Nurse Emergency | DX: M16.11 Unilateral primary osteoarthritis, right hip (principal); M70.61 Trochanteric bursitis, right hip; M79.18 Myalgia, other site; I10 Essential (primary) hypertension | CPT/HCPCS: 99212 ==

== ENCOUNTER 2023-09-25 09:39 | Outpatient (REF) | payer OTHER, SELFPAY ==
[2023-09-25 11:35] LABS: Alanine Aminotransferase 17 U/L (0-31); Albumin Level 4.1 g/dL (3.5-5.0); Alkaline Phosphatase 114 U/L (39-117); Anion Gap 13 (12-20); Aspartate Amino Transferase 18 U/L (5-31); Bilirubin Total 0.5 mg/dL (0.0-1.0); Blood Urea Nitrogen 14 mg/dL (9-16); Calcium 9.4 mg/dL (8.4-10.2); Carbon Dioxide 28 mmol/L (22-29); Chloride 104 mmol/L (96-108); Estimated Glomerular Filt Rate > 60; Glucose Random 92 mg/dL (60-115); Potassium 3.2 mmol/L (3.3-5.1); Sodium 142 mmol/L (135-145); Total Protein 7.3 g/dL (6.5-8.0)
== END 2023-09-25 09:40 | disposition home or self-care (01) ==
LOC: HO.LAB 09:39
PROVIDERS: PCP Internal Medicine; Visit Provider Internal Medicine
DX: Z00.00 Encounter for general adult medical examination without abnormal findings (principal); E78.00 Pure hypercholesterolemia, unspecified; I10 Essential (primary) hypertension
CPT/HCPCS: 36415; 80053

== ENCOUNTER 2023-12-25 12:22 | Outpatient (REF) | payer OTHER, SELFPAY ==
[2023-12-25 13:56] LABS: Alanine Aminotransferase 32 U/L (0-31); Albumin Level 4.3 g/dL (3.5-5.0); Alkaline Phosphatase 103 U/L (39-117); Anion Gap 12 (12-20); Aspartate Amino Transferase 32 U/L (5-31); Bilirubin Total 0.5 mg/dL (0.0-1.0); Blood Urea Nitrogen 17 mg/dL (9-16); Carbon Dioxide 27 mmol/L (22-29); Chloride 105 mmol/L (96-108); Estimated Glomerular Filt Rate > 60; Glucose Random 103 mg/dL (60-115); Potassium 3.6 mmol/L (3.3-5.1); Sodium 140 mmol/L (135-145); Total Protein 7.4 g/dL (6.5-8.0)
== END 2023-12-25 12:23 | disposition home or self-care (01) ==
LOC: HO.LAB 12:22
PROVIDERS: PCP Internal Medicine; Visit Provider Internal Medicine
DX: E87.6 Hypokalemia (principal); I10 Essential (primary) hypertension
CPT/HCPCS: 36415; 80053

== ENCOUNTER 2024-02-18 12:45 | Outpatient (AMB) | payer OTHER, MEDICAID, SELFPAY ==
[2024-02-18 12:56] VITALS: BP 140/72; PULSE 98; O2SAT 98; BMI 18.4
--- NOTE | 2024-02-18 12:56 | MHC.OFFVIS ---
Vital Signs 02/18/24 12:56 Height 4 ft 10 in Weight 88 lb BMI 18.4 BP 140/72 H Blood Pressure Location Lt brachial Position Sitting Pulse 98 Pulse Source Pulse Oximeter Pulse Oximetry (%) 98 Oxygen Delivery Method Room Air Intake Visit Reasons: FMS Intake Note: Patient presents today with symptoms of fibromyalgia, she was last seen about a year ago. Today, she is feeling terrible with a lot of pain in back, legs, hips, everywhere. She states when she takes Gabapentin with Naproxen, it helps her a lot, she also states that the day time Gabapentin was taken off her list, and it helped her. Top Dyeing Machine Tender Required: Yes Top Dyeing Machine Tender Services: Top Dyeing Machine Tender Present Top Dyeing Machine Tender Name: [id number] Allergies No Known Allergies [No Known Allergies*] Allergy (Verified 02/18/24 13:00) Medication List - Last Reconciled 02/18/24 by Linda Ellis MD acetaminophen ER (Tylenol Arthritis Pain) 650 mg PO Q8H PRN albuterol sulfate 90 mcg/actuation 2 puffs inhalation Q6H PRN atorvastatin 20 mg PO BEDTIME budesonide 90 mcg/actuation (Pulmicort Flexhaler) 0 inhalations inhalation bupropion HCl XL 150 mg PO QAM duloxetine 30 mg PO BEDTIME duloxetine 60 mg PO QAM fluticasone propionate 50 mcg/actuation (Allergy Relief (fluticasone)) 1 spray intranasal DAILY gabapentin 800 mg PO BEDTIME naproxen 500 mg PO BID PRN omeprazole 20 mg PO DAILY quetiapine 50 mg PO BEDTIME spironolactone 50 mg PO DAILY tizanidine 2 mg PO BID PRN valsartan-hydrochlorothiazide 320-25 mg 1 tab PO DAILY HPI Comments Details: 58-year-old female with fibromyalgia returns for follow-up. She is currently on gabapentin 800 mg nightly and Cymbalta 60 mg daily. She had a bursitis injection by Pain Management last visit in it did help. She states however that she has been having pain in a different spot, it is in her lower thoracic spine laterally. She feels that she was hit by a truck. [facility] Medical History HTN (hypertension) Surgical History Hx of abdominal hysterectomy Hx of appendectomy Hx of section Hx of hernia repair Hx of tubal ligation Family History Father Diabetes HTN (hypertension) Mother Breast cancer Osteoporosis Diabetes HTN (hypertension) Brother HTN (hypertension) Social History Alcohol intake: never Patient Tobacco Use Status: Never used Tobacco Current occupational status: disabled Current occupation: rt hand Review of Systems Musc Reports back pain, Reports arthralgias and Reports stiffness Physical Exam Vital Signs: Last Vital Signs Pulse 98 02/18/24 12:56 BP 140/72 H 02/18/24 12:56 Pulse Ox 98 02/18/24 12:56 Oxygen Delivery Method Room Air 02/18/24 12:56 BMI result Body Mass Index 18.4 Const General: cooperative, healthy appearing and comfortable Nutritional Appearance: obese morbidly obese Orientation/consciousness: patient oriented x3 Limitations: no limitations HEENT Head: Yes normocephalic and Yes atraumatic Resp Effort & Inspection: normal respiratory effort and able to speak in complete sentences Cardio Rate: regular rate Rhythm: regular rhythm Skin General skin exam: no rashes or lesions noted Neuro General: patient oriented x3 Extrem Other: Diffuse fibromyalgia tender points Negative straight leg raise test bilaterally Assessment & Plan Assessment & Plan (1) Fibromyalgia: Code(s): M79.7 - Fibromyalgia Category: Medical Plan: 57-year-old female with fibromyalgia returns for follow-up. She is on gabapentin 800 mg nightly and duloxetine 60 mg. Duloxetine is prescribed by psychiatrist. Patient can continue same meds. I suggested water aerobics Follow-up in 6 months (2) Lumbar radicular pain: Code(s): M54.16 - Radiculopathy, lumbar region Category: Medical Plan: Advised patient to try using OTC Salonpas patches. If no improvement, return to pain management Plan I spent 16 minutes reviewing patient's chart, evaluating patient, counseling patient and documenting in the chart Coding Level of Care Code Est Pt Level 3 (64852) Diagnoses Fibromyalgia M79.7 Lumbar radicular pain M54.16
== END 2024-02-18 13:23 | disposition home or self-care (01) ==
PROVIDERS: PCP Internal Medicine; Visit Provider Student in an Organized Health Care Education/Training Program
DX: M79.7 Fibromyalgia (principal); M54.16 Radiculopathy, lumbar region
CPT/HCPCS: 99213

== ENCOUNTER → 2024-02-18 12:45 | Outpatient (BNVA) | payer OTHER, SELFPAY | PROVIDERS: PCP Internal Medicine; Visit Provider Student in an Organized Health Care Education/Training Program | DX: M79.7 Fibromyalgia (principal); M54.16 Radiculopathy, lumbar region | CPT/HCPCS: 99212 ==

== ENCOUNTER 2024-03-30 09:45 | Outpatient (REF) | payer OTHER, SELFPAY ==
[2024-03-30 10:00] LABS: MANUAL DIFF FLAG NO
[2024-03-30 10:37] LABS: Basophils Absolute Auto 0.1 X10*3/uL (0.0-0.2); Basophils Percent Auto 1.7 % (0-2); Eosinophils Absolute Auto 0.1 X10*3/uL (0.0-0.4); Eosinophils Percent Auto 1.4 % (0-4); Hematocrit 44.6 % (37.0-47.0); Hemoglobin 14.6 g/dl (12.0-16.0); Imm Gran Abs Auto 0.02 X10*3/uL (0.00-0.03); Imm Gran Pct Auto 0.3 % (0.0-0.4); Lymphocytes Absolute Auto 1.9 X10*3/uL (1.2-4.9); Lymphocytes Percent Auto 26.3 % (20-40); Mean Corpuscular HGB Conc 32.7 g/dl (31.0-35.0); Mean Corpuscular Hemoglobin 29.7 pg (27.0-33.0); Mean Corpuscular Volume 90.8 fL (80.0-98.0); Mean Platelet Volume 9.6 fL (9.4-12.3); Monocytes Absolute Auto 0.7 X10*3/uL (0.1-1.2); Monocytes Percent Auto 10.1 % (2-11); Neutrophils Absolute Auto 4.4 x10*3/uL (2.0-8.3); Neutrophils Percent Auto 60.2 % (45-73); Platelet Count 308 X10*3/uL (160-400); Red Blood Count 4.91 X10*6/uL (4.20-5.50); Red Cell Distribution Width 14.5 % (11.0-16.0); White Blood Count 7.2 X10*3/uL (4.8-10.8)
[2024-03-30 11:11] LABS: Alanine Aminotransferase 15 U/L (0-31); Albumin Level 4.3 g/dL (3.5-5.0); Alkaline Phosphatase 120 U/L (39-117); Anion Gap 10 (12-20); Aspartate Amino Transferase 17 U/L (5-31); Bilirubin Total 0.4 mg/dL (0.0-1.0); Blood Urea Nitrogen 16 mg/dL (9-16); Calcium 9.9 mg/dL (8.4-10.2); Carbon Dioxide 30 mmol/L (22-29); Chloride 106 mmol/L (96-108); Cholesterol 176 mg/dL (<200); Estimated Glomerular Filt Rate > 60; Glucose Random 101 mg/dL (60-115); HDL Cholesterol 65 mg/dL (>40); LDL Cholesterol Calculated 97 mg/dL (<100); Potassium 4.1 mmol/L (3.3-5.1); Sodium 142 mmol/L (135-145); Total Protein 7.6 g/dL (6.5-8.0); Triglycerides 73 mg/dL (<150)
== END 2024-03-30 09:46 | disposition home or self-care (01) ==
LOC: HO.LAB 09:45
PROVIDERS: PCP Internal Medicine; Visit Provider Internal Medicine
DX: I10 Essential (primary) hypertension (principal); J45.909 Unspecified asthma, uncomplicated; R74.01 Elevation of levels of liver transaminase levels
CPT/HCPCS: 36415; 80053; 80061; 85025

== ENCOUNTER 2024-04-07 13:02 | Outpatient (AMB) | payer OTHER, SELFPAY ==
[2024-04-07 13:08] VITALS: BP 156/74; PULSE 75; O2SAT 98; BMI 41.8
--- NOTE | 2024-04-07 13:08 | A.OFFVIS_ITS ---
Vital Signs 04/07/24 13:08 Height 4 ft 10 in Weight 200 lb BMI 41.8 BP 156/74 H Blood Pressure Location Rt brachial Position Sitting Pulse 75 Pulse Source Pulse Oximeter Pulse Oximetry (%) 98 Oxygen Delivery Method Room Air Intake Visit Reasons: Right Shoulder Pain Allergies No Known Allergies [No Known Allergies*] Allergy (Verified 04/07/24 13:09) Medication List - Last Reconciled 04/07/24 by Benita Freeman acetaminophen ER (Tylenol Arthritis Pain) 650 mg PO Q8H PRN albuterol sulfate 90 mcg/actuation 2 puffs inhalation Q6H PRN atorvastatin 20 mg PO BEDTIME budesonide 90 mcg/actuation (Pulmicort Flexhaler) 0 inhalations inhalation bupropion HCl XL 150 mg PO QAM duloxetine 30 mg PO BEDTIME duloxetine 60 mg PO QAM fluticasone propionate 50 mcg/actuation (Allergy Relief (fluticasone)) 1 spray intranasal DAILY gabapentin 800 mg PO BEDTIME naproxen 500 mg PO BID PRN omeprazole 20 mg PO DAILY quetiapine 50 mg PO BEDTIME spironolactone 50 mg PO DAILY tizanidine 2 mg PO BID PRN valsartan-hydrochlorothiazide 320-25 mg 1 tab PO DAILY HPI Comments Details: Rosy presents back to the office today for evaluation and management of her right shoulder pain Visit completed with retail loss prevention specialist: José Miguel #[id number] Suffering with this pain for approximately 4 weeks. She denies inciting injury fall, trauma. Reports she has a history of right shoulder pain and has multiple cortisone injections in the past with good relief. Last injection was greater than 1 year ago. She has undergone physical therapy in the past with out improvement. She has attempted home exercise program since this pain started but reports the pain is too severe for her to move the arm. Currently taking gabapentin, NSAIDs, Tylenol and using topical medications without improvement PFSH Medical History HTN (hypertension) Surgical History Hx of abdominal hysterectomy Hx of appendectomy Hx of section Hx of hernia repair Hx of tubal ligation Family History Father Diabetes HTN (hypertension) Mother Breast cancer Osteoporosis Diabetes HTN (hypertension) Brother HTN (hypertension) Social History Alcohol intake: never Patient Tobacco Use Status: Never used Tobacco Current occupational status: disabled Current occupation: rt hand Review of Systems Const All systems reviewed & are unremarkable except as noted in HPI and below Physical Exam Vital Signs: Last Vital Signs Pulse 75 04/07/24 13:08 BP 156/74 H 04/07/24 13:08 Pulse Ox 98 04/07/24 13:08 Oxygen Delivery Method Room Air 04/07/24 13:08 BMI result Body Mass Index 41.8 General: awake, alert, oriented. Answers questions appropriately. Skin: warm, dry, intact HEENT: Normocephalic. Hearing intact. Cardiac: External chest normal in appearance. Respiratory: No cough, audible wheezing or stridor. Abdomen: without gross distension. MS: No obvious swelling or deformities. Right shoulder: Limited range of motion in all planes. No significant pain with behind the back and overhead reach. Tender to palpation over AC/GH joints. Neurological: Oriented to person, place, time and situation. Psychiatric: Appropriate mood and affect. Good judgment and insight. Assessment & Plan Assessment & Plan (1) Right shoulder pain: Code(s): M25.511 - Pain in right shoulder Category: Medical Plan X-ray ordered for evaluation Patient has exhausted conservative therapy included [id number] medications, nonsteroidal anti-inflammatory medications, home exercise program/PT unable to complete secondary to pain Will schedule for fluoroscopy guided right intra-articular shoulder injection with local anesthetic. All questions and concerns were answered, patient agrees to the plan. Follow up after injection, sooner if needed Orders: Orders XR shoulder RT min 2V Today M25.511 - Pain in right shoulder Coding Level of Care Code Est Pt Level 3 (30505) Complex EM visit Add On G2211 Diagnoses Right shoulder pain M25.511
== END 2024-04-07 13:20 | disposition home or self-care (01) ==
PROVIDERS: PCP Internal Medicine; Visit Provider Registered Nurse Emergency
DX: M25.511 Pain in right shoulder (principal)
CPT/HCPCS: 99213; G2211

== ENCOUNTER → 2024-04-07 13:02 | Outpatient (BNVA) | payer OTHER, SELFPAY | PROVIDERS: PCP Internal Medicine; Visit Provider Registered Nurse Emergency | DX: M25.511 Pain in right shoulder (principal) | CPT/HCPCS: 99212 ==

== ENCOUNTER 2024-04-12 13:51 | Outpatient (REF) | payer OTHER, SELFPAY | END 2024-04-12 13:52 | disposition home or self-care (01) | LOC: HO.XRAY 13:51 | PROVIDERS: PCP Internal Medicine; Visit Provider Registered Nurse Emergency | DX: M25.511 Pain in right shoulder (principal) | CPT/HCPCS: 73030 ==

== ENCOUNTER 2024-04-14 13:41 | Outpatient (REF) | payer OTHER, SELFPAY ==
--- NOTE | ~2024-04-14 | MM_ITS ---
EXAMINATION: MM SCREENING DIGITAL BREAST TOMOSYNTHESIS, BILATERAL CLINICAL INFORMATION: Screening. Asymptomatic. COMPARISON: Mammography: Comparison is made with available priors TECHNIQUE: Digital breast mammography with tomosynthesis is performed in both the craniocaudal and mediolateral oblique views along with computer-aided detection (CAD). FINDINGS: There are scattered areas of fibroglandular density (ACR BI-RADS breast composition Category b). There are no significant masses, abnormal calcifications, or other abnormalities. MM/MM tomosynthesis screening BI IMPRESSION: No mammographic evidence of malignancy. ASSESSMENT: BI-RADS BI-RADS 1 - Negative RECOMMENDATION: Routine annual mammography screening. 1 year F/U This examination should not preclude the clinical evaluation of a suspicious palpable abnormality. This patient's information was entered into a reminder system with a target due date for their next mammogram. Electronically signed by: Liz Oliver DO 04/25/2024 04:15 PM [facility]
== END 2024-04-14 13:42 | disposition home or self-care (01) ==
LOC: HO.MAMMO 13:41
PROVIDERS: PCP Internal Medicine; Visit Provider Internal Medicine
DX: Z12.31 Encounter for screening mammogram for malignant neoplasm of breast (principal)
CPT/HCPCS: 77063; 77067

== ENCOUNTER → 2024-04-14 14:00 | Outpatient (BNV) | payer OTHER, SELFPAY | PROVIDERS: PCP Internal Medicine; Visit Provider Internal Medicine | DX: Z12.31 Encounter for screening mammogram for malignant neoplasm of breast (principal) | CPT/HCPCS: 77063; 77067 ==

== ENCOUNTER 2024-07-05 06:10 | Outpatient (REF) | payer OTHER, SELFPAY ==
--- NOTE | ~2024-07-05 | FL_ITS ---
EXAMINATION: FLUOROSCOPY GUIDANCE FOR NEEDLE PLACEMENT CLINICAL INFORMATION: M25.511 - Pain in right shoulder COMPARISON: None available. TECHNIQUE: Fluoroscopy guidance was provided to referring physician in the OR during the procedure. No radiologist was present. FINDINGS/ FL/FL guidance in treatment room IMPRESSION: Single digital images obtained in the OR during procedure reveals needle positioned superior to the humeral head with contrast in the soft tissues. FLUOROSCOPY TIME: 0.2 minutes. DOSE AREA PRODUCT: 0.0697 uGy-m2 (microgray-meter squared) Electronically signed by: Garth Mosqueda MD 07/13/2024 08:39 AM EST
== END 2024-07-05 06:11 | disposition home or self-care (01) ==
LOC: CF 06:10
PROVIDERS: Visit Provider Anesthesiology
DX: M25.511 Pain in right shoulder (principal)
CPT/HCPCS: 20610; J2003; J2795; J3301; Q9967

== ENCOUNTER 2024-07-05 09:50 | Outpatient (AMB) | payer OTHER, SELFPAY ==
[2024-07-05 09:53] VITALS: BP 134/76; PULSE 88; O2SAT 97
--- NOTE | 2024-07-05 09:53 | A.OFFVIS_ITS ---
Vital Signs 07/05/24 09:53 07/05/24 10:21 BP 134/76 126/76 Blood Pressure Location Lt brachial Lt brachial Position Sitting Sitting Pulse 88 84 Pulse Source Pulse Oximeter Pulse Oximeter Pulse Oximetry (%) 97 98 Oxygen Delivery Method Room Air Room Air Intake Visit Reasons: RIGHT INTRA-ARTICULAR SHOULDER INJECTION Allergies No Known Allergies [No Known Allergies*] Allergy (Verified 04/07/24 13:09) PFSH Medical History HTN (hypertension) Surgical History Hx of abdominal hysterectomy Hx of appendectomy Hx of section Hx of hernia repair Hx of tubal ligation Family History Father Diabetes HTN (hypertension) Mother Breast cancer Osteoporosis Diabetes HTN (hypertension) Brother HTN (hypertension) Social History Alcohol intake: never Patient Tobacco Use Status: Never used Tobacco Current occupational status: disabled Current occupation: rt hand Physical Exam Vital Signs: Last Vital Signs Pulse 84 07/05/24 10:21 BP 126/76 07/05/24 10:21 Pulse Ox 98 07/05/24 10:21 Oxygen Delivery Method Room Air 07/05/24 10:21 Assessment & Plan Assessment & Plan (1) Right shoulder pain: Code(s): M25.511 - Pain in right shoulder Category: Medical Plan: Right shoulder steroid injection. Informed consent was explained to the patient were risks of bleeding infection peripheral nerve damage were explained. She was taken to the operating room where she was positioned prone on the operating table. Time-out was performed delineating her name and date of , nature of the procedure site of the injection allergies. Her right shoulder was prepped with ChloraPrep and draped with sterile utility self adhesive towels. C-arm was brought over the operating room and sq picture of glenohumeral joint on the right was demonstrated on the screen. The superior medial portion of the joint was chosen as the site of the injection. The projection of this portion of the joint to the skin was injected with lidocaine 1% forming skin wheal. After that 22 gauge 3-1/2 inch spinal needle was inserted through the skin wheal and advanced to were the joint under anterior posterior view in tunnel vision fashion. When tip of the needle entered the capsule of the joint injection of t he contrast was performed demonstrating arthrogram. After that injection of the ropivacaine 0.5% mixed with Kenalog 40 mg was performed. After that needle was removed sterile Band-Aid was applied. The patient tolerated the procedure well. She was taken outside of the operating room to the recovery room where she recovered uneventfully. Orders: Orders FL guidance in treatment room Today M25.511 - Pain in right shoulder Coding Level of Care Code Procedure Only Diagnoses Right shoulder pain M25.511
[2024-07-05 10:21] VITALS: BP 126/76; PULSE 84; O2SAT 98
== END 2024-07-05 10:23 | disposition home or self-care (01) ==
LOC: HO.PMCPRC 09:50
PROVIDERS: PCP Internal Medicine; Visit Provider Anesthesiology
DX: M25.511 Pain in right shoulder (principal)
CPT/HCPCS: 20610; 77002

== ENCOUNTER → 2024-07-27 10:37 | Outpatient (BNVA) | payer OTHER, SELFPAY | PROVIDERS: PCP Internal Medicine; Visit Provider Registered Nurse Emergency | DX: M25.511 Pain in right shoulder (principal) | CPT/HCPCS: 99212 ==

== ENCOUNTER 2024-10-25 09:52 | Outpatient (REF) | payer OTHER, SELFPAY ==
--- OUTSIDE RECORDS SUMMARY | 2024-10-25 11:06 | XMS_ITS | Encounter Summary ---
Author Organization [employer] Address [address] [place] [address] Care Team Providers Care Recreation Supervisor Name Role Phone Name, Ron OLIVEROS Primary Care Provider [phone] Reason for Visit * Reason Onset Date Comments December recalls 10/24/2024 Encounter Details Date Type Department Care Team ([facility] st Contact Info) Description 10/24/2024 Telephone [facility] [address] [place] [address] Arlene Barnes MA December recalls Social History Tobacco Use Types Packs/Day Years Used Date Smoking Tobacco: Never Smokeless Tobacco: Never Alcohol Use Standard Drinks/Week Comments Defer 0 (1 standard drink = 0.6 oz pur e alcohol) socially Depression Answer Date Recorded Patient Health Questionnaire-9 Score 21 10/18/2024 Patient Health Questionnaire-9 Score 21 10/18/2024 Last PHQ-9: Questionnaire Data Not on file 0 10/18/2024 Housing Stability Answer Date Recorded What is your housing situation today? I have dl carter 10/18/[address] you li ve. Do you have problems with any of the following? None of the above 10/18/2024 Food Insecurity Answer Date Recorded Within the past 12 months, y ou worried that your food would run out before you got money to buy more: Never True 10/18/2024 Within the past 12 months,th e food you bought just didn't last and you didn't have enough money to get more: Never True Transportation Answer Date Recorded In the past 12 months, has l ack of transportation kept you from medical appts, meetings, work or from getting things needed for daily living? No 10/18/2024 Utilities Answer Date Recorded In the past 12 months, has t he electric, gas, oil or water company threatened to shut off services in your home? No 10/18/2024 Depression Answer Date Recorded Patient Health Questionnaire-2 Score 5 10/18/2024 Internet Access Answer Date Recorded Internet Access Q1 Yes 10/18/2024 Internet Access Q2 Not on file 10/18/2024 Comments Unknown Sex and Gender Information Value Date Recorded Sex Assigned at Female 09/12/2024 3:49 PM EDT Legal Sex Female 3:47 PM EDT Gender Identity Female 10/18/2024 9:35 AM EDT Sexual Orientation Straight 10/18/2024 9: 35 AM EDT documented as of this encounter Miscellaneous Notes * Telephone Encounter - Arlene Barnes MA - 10/24/2024 3:57 PM EDT Telephone call to patient to schedule the following recall: Visit type: Follow up Appointment notes: HTN Patient agree to appointment on 02/03/25 at 11:30 AM with Name. documented in this encounter Plan of Treatment Upcoming Encounters Date Type Department Care Team (Late st Contact Info) Description 02/03/2025 11:30 AM EDT Office Visit [facility] [address] [place] [address] Ron Nelson MD [address] [place] [address] documented as of this encounter Visit Diagnoses Not on filedocumented in this encounter Additional Health Concerns Assessment Noted Time PHQ-9 Depression Total Score: 21 025 9:58 AM EDT documented as of this encounter Care Teams Recreation Supervisor Relationship Specialty Start Date End Date NameRon MD [address] [place] [id number] PCP - General Internal Medicine 10/18/24 documented as of this encounter
--- OUTSIDE RECORDS SUMMARY | 2024-10-25 11:06 | XMS_ITS | Clinical Summary ---
Author Organization [employer] Address [address] [place] [address] Care Team Providers Care Plant Machinist Name Role Phone Name, Ron OLIVEROS Primary Care Provider [phone] Allergies No known active allergies Medications atorvastatin (Lipitor) 20 MG tablet Take 20 mg by mouth at bedtime. 08/22/2024 Active albuterol 108 (90 Base) MCG/ACT inhaler 10/07/2024 Act angely buPROPion XL (Wellbutrin XL) 150 MG 24 hr tablet Take 1 tablet by mouth Once per day. 09/17/2024 Active DULoxetine (Cymbalta) [address] capsule take 1 capsule by mouth every day in the morning 09/17/2024 Active naproxen (Naprosyn) 500 MG tablet Take 1 tablet by mouth 2 times daily. 08/30/2024 Active montelukast (Singulair) 10 MG tablet 10/05/2024 Active gabapentin (Neurontin) 800 MG tablet Take 800 mg by mouth at bedtime. 09/15/2024 Active omeprazole (PriLOSEC) [address] capsule Take 1 capsule by mouth Once per day. 09/27/2024 Active QUEtiapine (SEROquel) 50 MG tablet Take 50 mg by mouth if needed at bedtime. 09/07/2024 Active spironolactone (Aldactone) 50 MG tablet Take 1 tablet by mouth Once per day. 09/19/2024 Active valsartan-hydro CHLOROthiazide (Diovan-HCT) 320-25 MG tablet Take 1 tablet by mouth Once per day. 08/19/2024 Active Active Problems Problem Noted Date Diagnosed Date Primary hypertension 10/18/2024 Morbid obesity 10/18/2024 High cholesterol 10/18/2024 Mood disorder 10/18/2024 Chronic back pain 10/18/2024 Fibromyalgia 10/18/2024 Asthma 10/18/2024 History of rheumatoid arthritis 10/18/2024 Osteoarthritis of multiple joints 10/18/2024 Encounters Date Type Department Care Team Description 10/24/2024 Telephone [facility] [address] [place] [address] Arlene Barnes MA December recalls 10/18/2024 10:15 AM EDT Office Visit [facility] [address] [place] [address] Ron Nelson MD Primary hypertension (Primary Dx); Morbid obesity (CMS/HCC); High cholesterol; Mood disorder (CMS/HCC); Chronic back pain, unspecified back location, unspecified back pain laterality; Asthma, unspecified asthma severity, unspecified whether complicated, unspecified whether persistent; History of rheumatoid arthritis; Fibromyalgia; Osteoarthritis of multiple joints, unspecified osteoarthritis type 10/18/2024 Travel 10/17/2024 Telephone [facility] [address] [place] [address] Ron Nelson MD Chart Prep 10/06/2024 Patient Outreach [facility] [address] [place], [place] [id number] Ron Nelson MD Pre-visit Planning ([facility] unable to reach [facility]) from Last 3 Months Social History Tobacco Use Types Packs/Day Years [...] Orientation Straight 10/18/2024 9: 35 AM EDT Last Filed Vital Signs Vital Sign Reading Time Taken Comments Blood Pressure 121/80 10/18/2024 9:51 AM EDT Pulse 97 10/18/2024 9:51 AM EDT Temperature 36.7 ??C (98 ??F) 10/18/2024 9:51 AM EDT Respiratory Rate 18 10/18/2024 9:51 AM EDT Oxygen Saturation 98% 10/18/2024 9:51 AM EDT Inhaled Oxygen Concentration - - Weight 92.9 kg (204 lb 12.8 oz) 10/18/2024 9:51 AM EDT Height 147.3 cm (4' 10 ) 10/18/2024 9:51 AM EDT Body Mass Index 42.8 10/18/2024 9:51 AM EDT Plan of Treatment Upcoming Encounters Date Type Department Care Team (Late st Contact Info) Description 02/03/2025 11:30 AM EDT Office Visit [facility] [address] [place] [address] Name, MD Ron [address] [place] [address] Health Maintenance Due Date Last Done Comments CT Colonography 1965 Colonoscopy 1965 Colorectal Cancer Screening 1965 FIT DNA/Cologuard 1965 FIT 1965 FOBT 1965 HIV Screening 1965 Lipid Panel 1965 Sigmoidoscopy 1965 Hepatitis C Screening 1982 Pneumococcal Vaccine: 50+ Years (1 of 2 - PCV) 10/01/1983 Pap Smear 1985 Cervical Cancer Screening 1994 HPV/Cotest 1994 Mammogram 2004 Zoster Vaccines (1 of 2) 2014 DTaP/Tdap/Td Vaccines (2 - T d or Tdap) 11/24/2019 11/23/2009 COVID-19 Vaccine (3 2023-2 5 season) 2024 10/02/2020, 09/26/2020 Influenza Vaccine (#1) 2024 2, 03/14/2011 RSV Patients and Patients Aged 60 years or older (1 - Risk 60-74 years 1-dose series) 2024 Alcohol/Substance Use Screening 10/18/2025 10/18/2024 Depression Screening 10/18/2025 10/18/2024, 10/18/2024 SDOH Screening 10/18/2025 10/18/2024 Tobacco Screening 10/18/2025 10/18/2024 Hepatitis A Vaccines Aged Out 11/21/2011, 05/23/2011 No longer eligible based on patient's age to complete this topic Hepatitis B Vaccines Completed 11/21/2011, 06/27/2011, 05/23/2011 HIB Vaccines Aged Out No longer eligi ble based on patient's age to complete this topic HPV Vaccines Aged Out No longer eligi ble based on patient's age to complete this topic IPV Vaccines Aged Out No longer eligi ble based on patient's age to complete this topic Meningococcal Vaccine Aged Out No leila ruby eligible based on patient's age to complete this topic RSV under 20 months Aged Out No longe r eligible based on patient's age to complete this topic Rotavirus Vaccines Aged Out No longer eligible based on patient's age to complete this topic Insurance * Guarantor: Sandi Chester Account Type Relation to Patient Date of Phone Billing Address Personal/Family Self 1965 [address] [place] [address] [facility] ONE CARE < 65 Care Teams Plant Machinist Relationship Specialty Start Date End Date Name, MD Ron [address] [place] [address] PCP - General Internal Medicine 10/18/24
[2024-10-25 11:16] LABS: MANUAL DIFF FLAG NO
[2024-10-25 11:24] LABS: Basophils Absolute Auto 0.1 X10*3/uL (0.0-0.2); Basophils Percent Auto 1.2 % (0-2); Eosinophils Absolute Auto 0.1 X10*3/uL (0.0-0.4); Eosinophils Percent Auto 1.4 % (0-4); Hematocrit 39.7 % (37.0-47.0); Hemoglobin 13.1 g/dl (12.0-16.0); Imm Gran Abs Auto 0.02 X10*3/uL (0.00-0.03); Imm Gran Pct Auto 0.3 % (0.0-0.4); Lymphocytes Absolute Auto 2.1 X10*3/uL (1.2-4.9); Lymphocytes Percent Auto 27.6 % (20-40); Mean Corpuscular Hemoglobin 29.8 pg (27.0-33.0); Mean Corpuscular Volume 90.2 fL (80.0-98.0); Mean Platelet Volume 10.1 fL (9.4-12.3); Monocytes Absolute Auto 0.6 X10*3/uL (0.1-1.2); Monocytes Percent Auto 8.1 % (2-11); Neutrophils Absolute Auto 4.7 x10*3/uL (2.0-8.3); Neutrophils Percent Auto 61.4 % (45-73); Platelet Count 303 X10*3/uL (160-400); Red Cell Distribution Width 14.2 % (11.0-16.0); White Blood Count 7.7 X10*3/uL (4.8-10.8)
[2024-10-25 12:09] LABS: Rheumatoid Factor < 13.0 IU/mL (<15.0)
[2024-10-25 14:46] LABS: Anion Gap 12 (12-20)
[2024-10-25 14:53] LABS: Alanine Aminotransferase 13 U/L (0-31); Albumin Level 4.1 g/dL (3.5-5.0); Aspartate Amino Transferase 21 U/L (5-31); Bilirubin Total 0.4 mg/dL (0.0-1.0); Blood Urea Nitrogen 16 mg/dL (9-16); C Reactive Protein 2.32 mg/dL (< or = 0.50); Calcium 9.3 mg/dL (8.4-10.2); Carbon Dioxide 30 mmol/L (22-29); Chloride 103 mmol/L (96-108); Cholesterol 207 mg/dL (<200); Estimated Glomerular Filt Rate > 60; Glucose Random 97 mg/dL (60-115); HDL Cholesterol 52 mg/dL (>40); LDL Cholesterol Calculated 136 mg/dL (<100); Potassium 3.6 mmol/L (3.3-5.1); Sodium 141 mmol/L (135-145); Total Protein 7.1 g/dL (6.5-8.0); Triglycerides 95 mg/dL (<150)
[2024-10-25 18:19] LABS: Alkaline Phosphatase 103 U/L (39-117)
== END 2024-10-25 09:53 | disposition home or self-care (01) ==
LOC: HO.HHCL 09:52
PROVIDERS: Visit Provider Internal Medicine Geriatric Medicine
DX: I10 Essential (primary) hypertension (principal); E66.01 Morbid (severe) obesity due to excess calories; F39 Unspecified mood [affective] disorder; M54.9 Dorsalgia, unspecified; J45.909 Unspecified asthma, uncomplicated; G89.29 Other chronic pain; M79.7 Fibromyalgia; M15.9 Polyosteoarthritis, unspecified; Z87.39 Personal history of other diseases of the musculoskeletal system and connective tissue; E78.00 Pure hypercholesterolemia, unspecified
CPT/HCPCS: 36415; 80053; 80061; 85025; 86140; 86431

== ENCOUNTER 2024-12-15 12:12 | Outpatient (AMB) | payer OTHER, SELFPAY ==
--- NOTE | 2024-12-15 12:35 | MHC.OFFVIS ---
Intake Visit Reasons: FMS Intake Note: Patient presents for FMS follow up. Allergies No Known Allergies (No Known Allergies*) Allergy (Verified 04/07/24 13:09) PFSH Medical History HTN (hypertension) Surgical History Hx of abdominal hysterectomy Hx of appendectomy Hx of section Hx of hernia repair Hx of tubal ligation Family History Father Diabetes HTN (hypertension) Mother Breast cancer Osteoporosis Diabetes HTN (hypertension) Brother HTN (hypertension) Social History Alcohol intake: never Patient Tobacco Use Status: Never used Tobacco Current occupational status: disabled Current occupation: rt hand Coding
--- NOTE | 2024-12-15 12:36 | A.OFFVIS_ITS ---
Vital Signs 12/15/24 12:43 Height 4 ft 10 in Weight 197 lb 12.074 oz BMI 41.3 BP 124/80 Blood Pressure Location Lt brachial Position Sitting Pulse 61 Pulse Source Pulse Oximeter Pulse Oximetry (%) 98 Oxygen Delivery Method Room Air Intake Visit Reasons: FMS Intake Note: Patient presents for FMS follow up. Supervisor Pumping Station Required: Yes Supervisor Pumping Station Language: Bulb Inspector Services: Supervisor Pumping Station Present Supervisor Pumping Station Name: Nasir [phone] Information Interpreted: non-clinical & clinical Allergies No Known Allergies (No Known Allergies*) Allergy (Verified 12/15/24 12:42) Medication List - Last Reconciled 12/15/24 by Marnie Freeman MD acetaminophen ER (Tylenol Arthritis Pain) 650 mg PO Q8H PRN albuterol sulfate 90 mcg/actuation 2 puffs inhalation Q6H PRN atorvastatin 20 mg PO BEDTIME budesonide 90 mcg/actuation (Pulmicort Flexhaler) 0 inhalations inhalation bupropion HCl XL 150 mg PO QAM duloxetine 30 mg PO BEDTIME duloxetine 60 mg PO QAM fluticasone propionate 50 mcg/actuation (Allergy Relief (fluticasone)) 1 spray intranasal DAILY gabapentin 800 mg PO BEDTIME naproxen 500 mg PO BID PRN omeprazole 20 mg PO DAILY quetiapine 50 mg PO BEDTIME spironolactone 50 mg PO DAILY tizanidine 2 mg PO BID PRN valsartan-hydrochlorothiazide 320-25 mg 1 tab PO DAILY HPI Comments Details: Patient is a 59-year-old female with hypertension, depression, asthma, polyarticular osteoarthritis and fibromyalgia here today for follow up Interval History: Patient last seen 02/18/24 with me. At that time she was following up for her fibromyalgia on gabapentin 800 mg nightly, Cymbalta 60 mg daily. Exercise and topical patches were advised for her pain. Today, Continues to complain of diffuse pain In particular today, neck pain with muscle tension and associated headache and dizziness Rheumatologic History: polyarticular OA and fibromyalgia Current Rheumatology Medication(s): Gabapentin 800mg nightly Duloxetine 60mg (psychiatry) PFSH Medical History HTN (hypertension) Surgical History Hx of hernia repair Hx of tubal ligation Hx of abdominal hysterectomy Hx of section Hx of appendectomy Family History Father Diabetes HTN (hypertension) Mother Breast cancer Osteoporosis Diabetes HTN (hypertension) Brother HTN (hypertension) Social History Alcohol intake: never Patient Tobacco Use Status: Never used Tobacco Current occupational status: disabled Current occupation: rt hand Review of Systems Const Details: Review of Systems Constitutional: Denies fever, chills, weight loss ENT: Denies vision changes, eye pain or eye redness, dental caries, dry mouth GI: Denies nausea, vomiting, diarrhea, abdominal pain, change in BM Pulm: Denies SOB, TAMEZ, hemoptysis, wheezing Cards: Denies chest pain, palpitations Skin: Denies Raynaud's, rash, nail changes, photosensitivity, FILLING CARRIER: Denies headaches, weakness, paresthesias, recurrent falls MSK: as per HPI All other systems reviewed and are unremarkable except noted above Physical Exam Vital Signs: Last Vital Signs Pulse 61 12/15/24 12:43 BP 124/80 12/15/24 12:43 Pulse Ox 98 12/15/24 12:43 Oxygen Delivery Method Room Air 12/15/24 12:43 BMI result Body Mass Index 41.3 Vital signs reviewed Physical Examination CONSTITUITIONAL Patient alert and cooperative. Well appearing and in no apparent painful distress HEENT Conjunctiva and sclera clear. No lymphadenopathy. CHEST/RESPIRATORY SYSTEM Normal respiratory effort and able to speak in complete sentences. Clear to auscultation bilaterally. No crackles, rales, rhonchi, wheezes heard. CARDIAC SYSTEM Regular rate and rhythm. S1 and S2 heard no murmurs. Radial pulses intact bilaterally MSK Hands * Right Hand: Able to make a fist. No swelling or tenderness to palpation of these joints. * Left Hand: Able to make a fist. No swelling or tenderness to palpation of these joints. * Herbeden's nodes Wrists * Right Wrist: Full ROM. 70 degrees of wrist flexion, 80 degrees of wrist extension. No swelling or TTP * Left Wrist: Full ROM. 70 degrees of wrist flexion, 80 degrees of wrist extension. No swelling or TTP Elbows * Right Elbow: Full ROM. No swelling or TTP. No TTP of the medial and lateral epicondyles * Left Elbow: Full ROM. No swelling or TTP. No TTP of the medial and lateral epicondyles Shoulders * Right shoulder: Full ROM. No swelling noted. TTP of the subacromial bursa * Left shoulder: Full ROM. No swelling noted. TTP of the subacromial bursa Hip bursa: Tenderness to palpation bilaterally Knees * Right knee: Full ROM. No swelling noted. TTP pes anserine bursa * Left knee: Full ROM. No swelling noted. TTP pes anserine bursa. Ankles * Right ankle: Good ankle dorsiflexion and plantar flexion. No swelling. No TTP of the ankle joint * Left ankle: Good ankle dorsiflexion and plantar flexion. No swelling. No TTP of the ankle joint Feet * Right foot: Negative squeeze test * Left foot: Negative squeeze test Tender points? * Tenderness to palpation of the bilateral trapezius, supraspinatus, anterior co stochondral junctions, bilateral suboccipital muscle insertions SKIN No rashes Results Reviewed Results Reviewed: Laboratory Tests 10/25/24 09:54 Sodium 141 Potassium 3.6 Chloride 103 Carbon Dioxide 30 H BUN 16 Creatinine 0.77 AST 21 ALT 13 Alkaline Phosphatase 103 C-Reactive Protein 2.32 H Laboratory Tests 03/23/18 11/30/18 10/25/24 11:35 11:51 09:54 Rheumatoid Factor < 15.0 < 13.0 Cycl Citrul Peptide IgG <16 YANELI Screen Negative Assessment & Plan Assessment & Plan (1) Fibromyalgia: Code(s): M79.7 - Fibromyalgia Category: Medical Plan: #Fibromyalgia Patient is a 59-year-old female with polyarticular osteoarthritis and fibromyalgia here today for follow up. Had a very long discussion with the patient using the spanish medical interpreter about her disease including the necessity for daily stretches and exercises Plan - Gabapentin 800mg bedtime - Duloxetine (from psychiatry) - Exercises and stretches - RTC 6 months (2) Neck pain: Code(s): M54.2 - Cervicalgia Plan: #Neck pain Check C spine XR Associated with dizziness and shakes. Check CT head Plan I spent 45 minutes reviewing the record and labs, taking a history, examining the patient, discussing the treatment plan, ordering diagnostic work up and documenting in the medical record Orders: Orders CT head/brain wo IV con Today R51.9 - Headache, unspecified XR cervical spine 4V Today M54.2 - Cervicalgia Coding Level of Care Code Est Pt Level 5 (02093) Diagnoses Fibromyalgia M79.7 Neck pain M54.2
[2024-12-15 12:43] VITALS: BP 124/80; PULSE 61; O2SAT 98; BMI 41.3
--- OUTSIDE RECORDS SUMMARY | 2024-12-15 14:32 | XMS_ITS | Patient Health Record ---
Author Organization [facility] Address [address] [place] [address] Care Team Providers Care Mobile Therapist Name Role Phone Malilakesha Tatiana Primary Care Provider UnavailJose Carlos Cesar Unavailable [phone] Reason For Referral No Information Medications Medication SIG (Take, Route, Frequency, Duration) Notes Start Date End Date Status Dicyclomine HCl 10 MG 1-2 capsules Orall y Four times a day prn abdominal cramps/loose bowel movements for 30 day(s) 04/24/2016 Active Flovent HFA 220 MCG/ACT TAKE 2 PUFFS INHALED TWICE A DAY Inhalation for 30 Active ProAir HFA 108 (90 Base) MCG/ACT TAKE 2 PUFFS 4 TIMES A DAY Inhalation for 17 Active Omeprazole 20 MG TAKE ONE CAPSULE BY MOUTH EVERY DAY Oral for 30 Not-Taking Anaprox DS 550 MG 1 tablet Orally Twice a day Active hydroCHLOROthiazide 12.5 MG 1 capsule Or ally Once a day Active Losartan Potassium 50 MG 1 tablet Orally Once a day Not-Taking SEROquel 300 MG 1 tablet at bedtime Orally Once a day Active Sertraline HCl 100 MG 2 tablet Orally Once a day Active Omeprazole 20 MG 1 capsule Orally Once a day for 30 day(s) 04/24/2016 Active QUEtiapine Fumarate 300 MG TAKE 1 TABLET AT BEDTIME Oral for 30 Not-Taking Tozdzngvih-NWYJ-Tvlwezdm 50-325-40 MG 1 capsule as needed Orally every 4 hrs/prn Not-Taking Harvoni 90-400 MG 1 tablet Orally Once a day Not-Taking Fluticasone Propionate HFA 50 1 puff Inh alation Twice a day Active Problems Problem Type SNOMED Code ICD Code Onset Dates Problem Status W/U Status Risk Notes Problem 488116577 Encounter for screening for malignant neoplasm of colon (Z12.11) Active confirmed Problem 033274639 Irritable bowel syndrome with diarrhea (K58.0) Active confirmed Problem 718121153 Chronic hepatiti s C without hepatic coma (B18.2) Active confirmed Problem 872163029 Chronic hepatiti s C (B18.2) Active confirmed Problem 823872991 Elevated liver enzymes (R74.8) Active confirmed Problem 966395144 Gastroesophageal reflux disease, esophagitis presence not specified (K21.9) Active confirmed Plan Of Treatment Pending Test Test Name Order Date LIVER PROFILE 01/11/2016 LIVER PROFILE 11/14/2015 CBC w DIFF 10/24/2015 CBC w DIFF 01/11/2016 CBC w DIFF 11/14/2015 HEPATITIS C VIRAL LOAD 11/14/2015 HEPATITIS C VIRAL LOAD 01/11/2016 HCV RNA NS5A DRUG RESISTANCE 10/24/2015 Future Test Test Name Order Date COLONOSCOPY 04/13/2015 Insurance Providers Payer Name Payer Address Payer Phone Subscriber Number Group Number Insured Name Patient Relationship to Insured Coverage Start Date Coverage End Date MEDICAID OF [employer] [address] [place] [phone] [id number] YANELI LERMA Self - patient is the insured Medical (General) History Medical History History ICD Code Denies AL,DM,CVA,renal disease Chronic hepatitis C--had a l iver biopsy with Dr. Goff at [facility]--done at [facility]. Laboratories in 07/2014 showed AST of 70, ALT 108, hepatitis C viral load over 300,000, and hepatitis C genotype 1A. The liver biopsy from September 2011 showed a Grade 2/4 inflammation and a stage II/IV fibrosis. She finished 8 weeks of Harvoni in 12/2015--had a neg. HCV viral load in 12/2015 Depression/Anxiety/Panic attacks Asthma Normal screening colonoscopy in 06/2015--- mild sigmoid diverticulosis and small internal hemorrhoids hypertension Surgical History Surgery Date(Month/Year) Hysterectomy C-sections x 3 Hernia repair x3 appendectomy
== END 2024-12-15 13:30 | disposition home or self-care (01) ==
LOC: HO.RHE 12:13
PROVIDERS: PCP Internal Medicine; Visit Provider Student in an Organized Health Care Education/Training Program
DX: M79.7 Fibromyalgia (principal); M54.2 Cervicalgia
CPT/HCPCS: 99215

== ENCOUNTER → 2024-12-15 12:12 | Outpatient (BNVA) | payer OTHER, SELFPAY | PROVIDERS: PCP Internal Medicine; Visit Provider Student in an Organized Health Care Education/Training Program | DX: M79.7 Fibromyalgia (principal); M54.2 Cervicalgia | CPT/HCPCS: 99212 ==

== ENCOUNTER 2024-12-16 11:49 | Outpatient (REF) | payer OTHER, SELFPAY ==
--- NOTE | ~2024-12-16 | XR_ITS ---
EXAMINATION: XR CERVICAL SPINE CLINICAL INFORMATION: M54.2 - Cervicalgia COMPARISON: January 28, 2022 TECHNIQUE: AP lateral swimmer's projection and atlantoodontoid views. FINDINGS: Craniocervical junction is intact. No acute cortical disruption. Small marginal osteophyte formation C3-4, C4-5 C5-6 and C6-7 levels. 1 mm anterolisthesis C4-5. No lytic or blastic lesions. XR/XR cervical spine 4V IMPRESSION: Multilevel cervical spondylosis, mild resulting in grade 1 anterolisthesis C4-5. Electronically signed by: Luis Miguel Pinto MD 12/16/2024 12:36 PM EDT
--- OUTSIDE RECORDS SUMMARY | 2024-12-16 12:56 | XMS_ITS | Encounter Summary ---
Demographics Address [address] [place] [address] Mobile Phone Home Phone Preferred Language es Marital Status Unknown Yazidi Affiliation Unknown Race Other Race Ethnic Group Unknown Author Organization [employer] Address [address] [place] [address] Care Team Providers Care Sawmill Manager Name Role Phone Name, Ron OLIVEROS Primary Care Provider [phone] Encounter Details Date Type Department Care Team (Late st Contact Info) Description 12/16/2024 Orders Only [facility] External Provider, [facility] Social History Tobacco Use Types Packs/Day Years [...] AM EDT documented as of this encounter Plan of Treatment Upcoming Encounters Date Type Department Care Team (Late st Contact Info) Description 02/03/2025 11:30 AM EDT Office Visit [facility] [address] [place] [address] Name, MD Ron [address] [place] [phone] documented as of this encounter Procedures Procedure Name Priority Date/Time Associated Diagnosis Comments XR CERVICAL SPINE 4V Routine 12/16/2024 12:00 PM EDT documented in this encounter Results * XR CERVICAL SPINE 4V (12/16/2024 12:00 PM EDT) Anatomical Region Laterality Modality Abdomen Radiographic Kelli ging 12/16/2024 12:0 0 PM EDT Narrative 12/16/2024 12:39 PM EDT [facility] [address] [place] [address] XRay Report Signed Patient: Sandi Mcmillan MR#: [id number] 2022 : 1965 Acct:[id number] Age/Sex: 59 / F ADM Date: 12/16/24 Loc: HO.XRAY Attending Dr: Marnie Freeman MD Ordering Physician: Marnie Freeman MD Date of Service: 12/16/24 Procedure(s): XR cervical spine 4V Accession Number(s): [id number] cc: Marnie Freeman MD; Name,Ron OLIVEROS EXAMINATION: XR CERVICAL SPINE CLINICAL INFORMATION: M54.2 - Cervicalgia COMPARISON: January 28, 2022 TECHNIQUE: AP lateral swimmer's projection and atlantoodontoid views. FINDINGS: Craniocervical junction is intact. No acute cortical disruption. Small marginal osteophyte formation C3-4, C4-5 C5-6 and C6-7 levels. 1 mm anterolisthesis C4-5. No lytic or blastic lesions. XR/XR cervical spine 4V IMPRESSION: Multilevel cervical spondylosis, mild resulting in grade 1 anterolisthesis C4-5. Electronically signed by: Luis Miguel Pinto MD 12/16/2024 12:36 PM EDT RP Dictated By: Luis Miguel Gibbons MD Signed By: <Electronically signed by Luis Miguel Reyez MD in OV> 12/16/24 1236 DD/ 1200 TD/TT: 12/16/24 1208 Stamping Operator: Procedure Note Donotuseinterpreter, Image - 12/16/2024 [place] [address] XRay Report Signed Patient: Sandi Mcmillan LMR#: [id number] 2022 : 1965Acct:[id number] Age/Sex: 59 / FADM Date: 12/16/24 Loc: HO.MARGEAY Attending Dr: Marnie Freeman MD Ordering Physician: Marnie Freeman MD Date of Service: 12/16/24 Procedure(s): XR cervical spine 4V Accession Number(s): [id number] cc: Marnie Freeman MD; Name,Ron OLIVEROS EXAMINATION: XR CERVICAL SPINE CLINICAL INFORMATION: M54.2 - Cervicalgia COMPARISON: January 28, 2022 TECHNIQUE: AP lateral swimmer's projection and atlantoodontoid views. FINDINGS: Craniocervical junction is intact. No acute cortical disruption. Small marginal osteophyte formation C3-4, C4-5 C5-6 and C6-7 levels. 1 mm anterolisthesis C4-5. No lytic or blastic lesions. XR/XR cervical spine 4V IMPRESSION: Multilevel cervical spondylosis, mild resulting in grade 1 anterolisthesis C4-5. Electronically signed by: Luis Miguel Pinto MD 12/16/2024 12:36 PM EDT RP Dictated By: Luis Miguel Gibbons MD Signed By: <Electronically signed by Luis Miguel Reyez MDin OV> 12/16/24 1236 DD/ 1200 TD/TT: 12/16/24 1208 Stamping Operator: [facility] External Provider IMG XR PROCEDURES Final Result documented in this encounter Visit Diagnoses Not on filedocumented in this encounter Additional Health Concerns Assessment Noted Time PHQ-9 Depression Total Score: 21 025 9:58 AM EDT documented as of this encounter Care Teams Sawmill Manager Relationship Specialty Start Date End Date Name, MD Ron [address] [place] [address] PCP - General Internal Medicine 10/18/24 documented as of this encounter
== END 2024-12-16 11:50 | disposition home or self-care (01) ==
LOC: HO.XRAY 11:49
PROVIDERS: PCP Internal Medicine Geriatric Medicine; Visit Provider Student in an Organized Health Care Education/Training Program
DX: M54.2 Cervicalgia (principal)
CPT/HCPCS: 72050

== ENCOUNTER → 2024-12-16 11:55 | Outpatient (BNV) | payer OTHER, SELFPAY | PROVIDERS: PCP Internal Medicine Geriatric Medicine; Visit Provider Radiology Diagnostic Radiology | DX: M47.892 Other spondylosis, cervical region (principal) | CPT/HCPCS: 72050 ==

== ENCOUNTER 2025-03-14 07:25 | Outpatient (REF) | payer OTHER, SELFPAY ==
--- NOTE | ~2025-03-14 | CT_ITS ---
EXAMINATION: CT HEAD WITHOUT CONTRAST CLINICAL INFORMATION: R51.9 - Headache, unspecified COMPARISON: January 24, 2007 images are not available on PACS system reported as normal exam. TECHNIQUE: Contiguous axial imaging was performed from the skull base to vertex without intravenous administration of contrast. This CT examination was performed using dose optimization techniques as appropriate, variously including the following: *Automated exposure control *Adjustment of mA and/or kV according to patient size (this includes techniques or standardized protocols for targeted exams where dose is matched to indication/reason for exam; i.e. extremities or head) *Use of iterative reconstruction technique DLP: 808 mGy-cm FINDINGS: No acute intracranial hemorrhage, mass effect, midline shift, hydrocephalus or herniation. [place]-white matter differentiation is normal. Posterior cranial fossa contents demonstrated no acute hemorrhage or mass effect. Normal position of the cerebellar tonsils. 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 Sellar suprasellar region demonstrated no gross masses. Mucosal thickening in the paranasal sinuses without air-fluid levels in the left maxillary sinus. Tympanic cavities and mastoid cells are aerated. No gross masses or fluid collections in the intraconal or extraconal compartments of the orbits. CT/CT head/brain wo IV con IMPRESSION: No acute or structural brain abnormality by CT. Acute on chronic pattern paranasal sinus disease. Electronically signed by: Luis Miguel Pinto MD 03/14/2025 08:17 AM EDT
--- OUTSIDE RECORDS SUMMARY | 2025-03-14 07:29 | XMS_ITS | Patient Health Record ---
Author Organization [facility] Address [address] [place] [address] Care Team Providers Care Senior Business Development Analyst Name Role Phone WinsomerosalindaAldenTatiana Primary Care Provider UnavailJose Carlos Cesar Unavailable [phone] Reason For Referral No Information Medications Medication [...] TABLET AT BEDTIME Oral for 30 Not-Taking Jjnbxkfwpg-YMTL-Ogfpvcyb 50-325-40 MG 1 capsule as needed Orally every 4 hrs/prn Not-Taking Harvoni 90-400 MG 1 tablet Orally Once a day Not-Taking Fluticasone Propionate HFA 50 1 puff Inh alation Twice a day Active Problems Problem Type SNOMED Code ICD Code Onset Dates Problem Status W/U Status Risk Notes Problem 755933598 Encounter for screening for malignant neoplasm of colon (Z12.11) Active confirmed Problem 652731705 Irritable bowel syndrome with diarrhea (K58.0) Active confirmed Problem 787329491 Chronic hepatiti s C without hepatic coma (B18.2) Active confirmed Problem 099584073 Chronic hepatiti s C (B18.2) Active confirmed Problem 116034538 Elevated liver enzymes (R74.8) Active confirmed Problem 138472862 Gastroesophageal reflux disease, esophagitis presence not specified [...] Start Date Coverage End Date MEDICAID OF [employer] [address] [facility] [place] [phone] [id number] YANELI LERMA Self - patient is the insured Medical (General) History Medical History History ICD Code Denies ME,DM,CVA,renal disease Chronic hepatitis C--had a l iver biopsy with Dr. Goff at [facility]--done at [facility]. Laboratories in 07/2014 showed AST of [...]
== END 2025-03-14 07:26 | disposition home or self-care (01) ==
LOC: HO.CT 07:25
PROVIDERS: Visit Provider Student in an Organized Health Care Education/Training Program
DX: R51.9 Headache, unspecified (principal)
CPT/HCPCS: 70450

== ENCOUNTER → 2025-03-14 07:28 | Outpatient (BNV) | payer OTHER, SELFPAY | PROVIDERS: Visit Provider Radiology Diagnostic Radiology | DX: R51.9 Headache, unspecified (principal); J01.40 Acute pansinusitis, unspecified | CPT/HCPCS: 70450 ==

== ENCOUNTER 2025-04-20 13:34 | Outpatient (REF) | payer OTHER, SELFPAY ==
--- OUTSIDE RECORDS SUMMARY | 2025-04-20 16:34 | XMS_ITS | Patient Health Record ---
Author Organization [facility] Address [address] [place] [address] Care Team Providers Care Furnace Repair Mechanic Name Role Phone MaliTatiana crowder Primary Care Provider Jose Carlos Ydaav Unavailable [phone] Reason For Referral No Information Medications Medication SIG (Take, Route, Frequency, Duration) Notes Start Date End Date Status Dicyclomine HCl 10 MG 1-2 capsules Orall y Four times a day prn abdominal cramps/loose bowel movements; Duration: 30 day(s) 04/24/2016 Active Flovent HFA 220 MCG/ACT TAKE 2 PUFFS INHALED TWICE A DAY Inhalation; Duration: 30 Active ProAir HFA 108 (90 Base) MCG/ACT TAKE 2 PUFFS 4 TIMES A DAY Inhalation; Duration: 17 Active Omeprazole 20 MG TAKE ONE CAPSULE BY MOUTH EVERY DAY Oral; Duration: 30 Not-Taking Anaprox DS 550 MG 1 [...] 20 MG 1 capsule Orally Once a day; Duration: 30 day(s) 04/24/2016 Active QUEtiapine Fumarate 300 MG TAKE 1 TABLET AT BEDTIME Oral; Duration: 30 Not-Taking Mxngmqgfvz-DJFM-Hdmlkrsh 50-325-40 MG 1 capsule as needed Orally every 4 hrs/prn Not-Taking Harvoni 90-400 MG 1 tablet Orally Once a day Not-Taking Fluticasone Propionate HFA 50 1 puff Inh alation Twice a day Active Problems Problem Type SNOMED Code ICD Code Onset Dates Problem Status W/U Status Risk Notes Problem Screening for malignant neoplasm of colon (402064517) Encounter for screening for malignant neoplasm of colon (Z12.11) Active confirmed Problem Irritable bowel syndrome with diarrhea (696403501) Irritable bowel syndrome with diarrhea (K58.0) Active confirmed Problem Chronic hepatitis C (648262100) Chronic hepatitis C without hepatic coma (B18.2) Active confirmed Problem Chronic hepatitis C (969295229) Chronic hepatitis C (B18.2) Active confirmed Problem Elevated liver enzymes level (093244404) Elevated liver enzymes (R74.8) Active confirmed Problem Gastroesophageal reflux disease (986219588) Gastroesophageal reflux disease, esophagitis presence not specified [...] Start Date Coverage End Date MEDICAID OF [employer] [address] [place] [address] [id number] YANELI LERMA Self - patient is the insured Medical (General) History Medical History History ICD Code Denies [place],DM,CVA,renal disease Chronic hepatitis C--had a l iver biopsy with Dr. Goff at [place]--done at [facility]. Laboratories in 07/2014 showed AST of 70, [...]
== END 2025-04-20 13:35 | disposition home or self-care (01) ==
LOC: HO.MAMMO 13:34
PROVIDERS: PCP Internal Medicine; Visit Provider Internal Medicine
DX: Z12.31 Encounter for screening mammogram for malignant neoplasm of breast (principal)
CPT/HCPCS: 77063; 77067

== ENCOUNTER → 2025-04-20 14:00 | Outpatient (BNV) | payer OTHER, SELFPAY | PROVIDERS: PCP Internal Medicine; Visit Provider Radiology Body Imaging | DX: Z12.31 Encounter for screening mammogram for malignant neoplasm of breast (principal) | CPT/HCPCS: 77063; 77067 ==

== ENCOUNTER 2025-04-26 12:17 | Outpatient (REF) | payer OTHER, SELFPAY ==
[2025-04-26 13:53] LABS: Hemoglobin A1C 149.9505 umol/L
--- OUTSIDE RECORDS SUMMARY | 2025-04-26 14:58 | XMS_ITS | Patient Health Record ---
Author Organization [facility] Address [address] [place] [address] Care Team Providers Care Regulatory Compliance Director Name Role Phone MaliTatiana crowder Primary Care Provider Jose Carlos Yadav Unavailable [phone] Reason For Referral No Information Medications Medication [...] TABLET AT BEDTIME Oral; Duration: 30 Not-Taking Bluzfughyv-AMWP-Wushrhjn 50-325-40 MG 1 capsule as needed Orally every 4 hrs/prn Not-Taking Harvoni 90-400 MG 1 tablet Orally Once a day Not-Taking Fluticasone Propionate HFA 50 1 puff Inh alation Twice a day Active Problems Problem Type SNOMED Code ICD Code Onset Dates Problem Status W/U Status Risk Notes Problem Screening for malignant neoplasm of colon (473482781) Encounter for screening for malignant neoplasm of colon (Z12.11) Active confirmed Problem Irritable bowel syndrome with diarrhea (763660460) Irritable bowel syndrome with diarrhea (K58.0) Active confirmed Problem Chronic hepatitis C (658126311) Chronic hepatitis C without hepatic coma (B18.2) Active confirmed Problem Chronic hepatitis C (261916777) Chronic hepatitis C (B18.2) Active confirmed Problem Elevated liver enzymes level (477841995) Elevated liver enzymes (R74.8) Active confirmed Problem Gastroesophageal reflux disease (761432513) Gastroesophageal reflux disease, esophagitis presence not specified [...] Start Date Coverage End Date MEDICAID OF [employer] [address] [place] [address] [id number] YANELI LERMA Self - patient is the insured Medical (General) History Medical History History ICD Code Denies SD,DM,CVA,renal disease Chronic hepatitis C--had a l iver biopsy with Dr. Goff at [place]--done at [facility]. Laboratories in 07/2014 showed AST of [...]
== END 2025-04-26 12:18 | disposition home or self-care (01) ==
LOC: HO.HHCL 12:17
PROVIDERS: PCP Internal Medicine Geriatric Medicine; Visit Provider Internal Medicine Geriatric Medicine
DX: E66.812 Obesity, class 2 (principal); Z13.1 Encounter for screening for diabetes mellitus
CPT/HCPCS: 36415; 83036

== ENCOUNTER 2025-05-19 11:23 | Emergency (ER) | payer OTHER, SELFPAY ==
[2025-05-19 11:30] VITALS: BP 153/67; PULSE 74; RESP 8; TEMP 37; O2SAT 94; BMI 34.8
--- NOTE | 2025-05-19 11:36 | ED.GENADULT ---
HPI - General Adult General Chief complaint: Back Pain/Injury Stated complaint: Back pain Time Seen by Provider: 05/19/25 14:49 Related Data Home Medications ?Medication ?Instructions ?Recorded ?Confirmed atorvastatin 20 mg tablet 20 mg PO BEDTIME 05/03/20 12/15/24 valsartan 320 1 tab PO DAILY 05/03/20 12/15/24 mg-hydrochlorothiazide 25 mg tablet duloxetine 30 mg capsule,delayed 30 mg PO BEDTIME 10/15/21 12/15/24 release albuterol sulfate 90 mcg/actuation 2 puff inhalation Q6H PRN 05/26/22 12/15/24 aerosol inhaler budesonide 90 mcg/actuation breath 0 inh inhalation 05/26/22 12/15/24 activated powder inhaler (Pulmicort Flexhaler) naproxen 500 mg tablet 500 mg PO BID PRN 05/26/22 12/15/24 quetiapine 50 mg tablet 50 mg PO BEDTIME 05/26/22 12/15/24 bupropion HCl 150 mg 24 hr tablet, 150 mg PO QAM 02/18/23 12/15/24 extended release duloxetine 60 mg capsule,delayed 60 mg PO QAM 02/18/23 12/15/24 release fluticasone propionate 50 1 spray intranasal DAILY 02/18/23 12/15/24 mcg/actuation nasal spray,suspension (Allergy Relief (fluticasone)) omeprazole 20 mg capsule,delayed 20 mg PO DAILY 02/18/23 12/15/24 release spironolactone 50 mg tablet 50 mg PO DAILY 02/18/24 12/15/24 Previous Rx's ?Medication ?Instructions ?Recorded acetaminophen 650 mg 650 mg PO Q8H PRN pain #90 tabs 05/03/20 tablet,extended release (Tylenol Arthritis Pain) tizanidine 2 mg tablet 2 mg PO BID PRN muscle spasticity 04/14/23 #60 tabs gabapentin 800 mg tablet 800 mg PO BEDTIME #90 tabs 01/17/25 capsaicin 0.035 % topical patch 1 patch topical TID PRN spasm #10 05/19/25 ea diazepam 2 mg tablet (Valium) 2 mg PO TID PRN spasms 3 days #10 05/19/25 tabs methylprednisolone 4 mg tablets in 4 mg PO DAILY #21 ea 05/19/25 a dose pack (Medrol (Leandro)) Allergies Allergy/AdvReac Type Severity Reaction Status Date / Time No Known Allergies (No Known Allergy Verified 05/19/25 11:33 Allergies*) [facility] Past Medical History Medical History HTN (hypertension) Surgical History Hx of hernia repair Hx of tubal ligation Hx of abdominal hysterectomy Hx of section Hx of appendectomy Family History Family History Father Diabetes HTN (hypertension) Mother Breast cancer Osteoporosis Diabetes HTN (hypertension) Brother HTN (hypertension) Social History Social History Alcohol intake: never Patient Tobacco Use Status: Never used Tobacco Current occupational status: disabled Current occupation: rt hand Physical Exam ED Vital Signs: Vital Signs - 24 hr 05/19/25 11:30 Temperature 98.6 F Pulse Rate 74 Respiratory Rate 8 L Blood Pressure 153/67 H Pulse Oximetry 94 Oxygen Delivery Method Room Air BMI result Body Mass Index 34.8 Course Course Course Narrative: Rapid medical examination performed in triage by Taryn Davis PA-C: Patient is a 59 year old assigned female at presenting to the emergency department with upper back pain. Patient states several days ago she lifted 2 very heavy pork loins and has had base of neck pain / upper back pain ever since. Patient states that she has taken several doses of gabapentin and ibuprofen with no relief. Detailed physical exam and review of systems are deferred to the fountain waitress/waiter. Patient placed back in the waiting room pending room availability. Discharge Plan Discharge Clinical Impression: Back muscle spasm Patient Disposition: Home, Self-Care Additional Instructions: Try capsaicin ointment patches it comes as a pack of 3, you can cup it into strips and apply over the area that hurts the most, Valium 2 mg every 6-8 hours needed for spasms, and continue steroids starting tomorrow 1st dose in the ER, otherwise follow up with the PCP any other issues or concerns come back to the ER, while taking Valium do not mix with any other sedating medications do not mix with alcohol marijuana do not drive or operate heavy machinery while using this medication Prescriptions: New capsaicin 0.035 % adhesive patch,medicated 1 patch topical TID PRN (Reason: spasm) Qty: 10 0RF diazepam [Valium] 2 mg tablet 2 mg PO TID PRN (Reason: spasms) 3 Days Qty: 10 0RF methylprednisolone [Medrol (Leandro)] 4 mg tablets,dose pack 4 mg PO DAILY Qty: 21 0RF Rx Instructions: Day 1: 24 mg on day 1 administered as 8 mg before breakfast, 4 mg after lunch, 4 mg after supper, and 8 mg at bedtime or 24 mg as a single dose or divided into 2 or 3 doses upon initiation. Day 2: 20 mg on day 2 administered as 4 mg before breakfast, 4 mg after lunch, 4 mg after supper, and 8 mg at bedtime. Day 3: 16 mg on day 3 administered as 4 mg before breakfast, 4 mg after lunch, 4 mg after supper, and 4 mg at bedtime. Day 4: 12 mg on day 4 administered as 4 mg before breakfast, 4 mg after lunch, and 4 mg at bedtime. Day 5: 8 mg on day 5 administered as 4 mg before breakfast and 4 mg at bedtime. Day 6: 4 mg on day 6 administered as 4 mg before breakfast. No Action gabapentin 800 mg tablet 800 mg PO BEDTIME Qty: 90 1RF duloxetine 30 mg capsule,delayed release(DR/EC) 30 mg PO BEDTIME atorvastatin 20 mg tablet 20 mg PO BEDTIME valsartan-hydrochlorothiazide 320-25 mg tablet 1 tab PO DAILY acetaminophen [Tylenol Arthritis Pain] 650 mg tablet extended release 650 mg PO Q8H PRN (Reason: pain) Qty: 90 3RF naproxen 500 mg tablet 500 mg PO BID PRN bupropion HCl 150 mg tablet extended release 24 hr 150 mg PO QAM duloxetine 60 mg capsule,delayed release(DR/EC) 60 mg PO QAM omeprazole 20 mg capsule,delayed release(DR/EC) 20 mg PO DAILY fluticasone propionate [Allergy Relief (fluticasone)] 50 mcg/actuation spray,suspension 1 spray intranasal DAILY Rx Instructions: administer into each nostril quetiapine 50 mg tablet 50 mg PO BEDTIME albuterol sulfate 90 mcg/actuation HFA aerosol inhaler 2 puff inhalation Q6H PRN Pulmicort Flexhaler 90 mcg/actuation aerosol powdr breath activated 0 inh inhalation tizanidine 2 mg tablet 2 mg PO BID PRN (Reason: muscle spasticity) Qty: 60 0RF spironolactone 50 mg tablet 50 mg PO DAILY Referrals: Name,MD Ron [Primary Care Provider, Internal Medicine] - 2 weeks Print Language: Emirati
--- OUTSIDE RECORDS SUMMARY | 2025-05-19 14:55 | XMS_ITS | Patient Health Record ---
Author Organization [facility] Address [address] [place] [address] Care Team Providers Care Stone Polisher Name Role Phone MaliHossein crowderma Primary Care Provider Jose Carlos Yadav Unavailable [phone] Reason For Referral No Information Medications Medication SIG (Take, Route, Frequency, Duration) Notes Start Date End Date Status Dicyclomine HCl 10 MG Capsule 1-2 capsules Orally Four times a day prn abdominal cramps/loose bowel movements; Duration: 30 day(s) 04/24/2016 Active Flovent HFA 220 MCG/ACT Aerosol TAKE 2 PUFFS INHALED TWICE A DAY Inhalation; Duration: 30 Active ProAir HFA 108 (90 Base) MCG/ACT Aerosol Solution TAKE 2 PUFFS 4 TIMES A DAY Inhalation; Duration: 17 Active Omeprazole 20 MG Capsule Delayed Release TAKE ONE CAPSULE BY MOUTH EVERY DAY Oral; Duration: 30 Not-Taking/ME N Anaprox DS 550 MG Tablet 1 tablet Orally Twice a day Active hydroCHLOROthiazide 12.5 MG Capsule 1 capsule Orally Once a day Active Losartan Potassium 50 MG Tablet 1 tablet Orally Once a day Not-Taking/PRN SEROquel 300 MG Tablet 1 tablet at bedtime Orally Once a day Active Sertraline HCl 100 MG Tablet 2 tablet Orally Once a day Active Omeprazole 20 MG Capsule Delayed Release 1 capsule Orally Once a day; Duration: 30 day(s) 04/24/2016 Active QUEtiapine Fumarate 300 MG Tablet TAKE 1 TABLET AT BEDTIME Oral; Duration: 30 Not-Taking/PRN Qxrcmceqnx-TQLS-Hmtcnted 50-325-40 MG Capsule 1 capsule as needed Orally every 4 hrs/prn Not-Taking/PRN Harvoni 90-400 MG Tablet 1 tablet Orally Once a day Not-Taking/PRN Fluticasone Propionate HFA 50 Aerosol 1 puff Inhalation Twice a day Active Social History Social History Additional Details Category Social Info Options Details Miscellaneous: Marital status: single---e x- had Hepatitis C Occupation: unemployed Section Notes: Nonsmoker; no sig alcohol; n o substance abuse Nonsmoker; no sig alcohol; n o substance abuse Nonsmoker; no sig alcohol; n o substance abuse Problems Problem Type SNOMED Code ICD Code Onset Dates Problem Status W/U Status Risk Notes Problem Screening for malignant neoplasm of colon (138156447) Encounter for screening for malignant neoplasm of colon (Z12.11) Active confirmed Problem Irritable bowel syndrome with diarrhea (803216355) Irritable bowel syndrome with diarrhea (K58.0) Active confirmed Problem Chronic hepatitis C (842385743) Chronic hepatitis C without hepatic coma (B18.2) Active confirmed Problem Chronic hepatitis C (024389564) Chronic hepatitis C (B18.2) Active confirmed Problem Elevated liver enzymes level (839021786) Elevated liver enzymes (R74.8) Active confirmed Problem Gastroesophageal reflux disease (985043032) Gastroesophageal reflux disease, esophagitis presence not specified (K21.9) Active confirmed Plan Of Treatment Pending Test Test Name Order Date LIVER PROFILE 11/14/2015 LIVER PROFILE 01/11/2016 CBC w DIFF 10/24/2015 CBC w DIFF 11/14/2015 CBC w DIFF 01/11/2016 HEPATITIS C VIRAL LOAD 11/14/2015 HEPATITIS C VIRAL LOAD 01/11/2016 HCV RNA NS5A DRUG RESISTANCE 10/24/2015 Future Test Test Name Order Date COLONOSCOPY 04/13/2015 Insurance Providers Payer Name Payer Address Payer Phone Subscriber Number Group Number Insured Name Patient Relationship to Insured Coverage Start Date Coverage End Date MEDICAID OF [facility] [address] [place] [phone] [id number] YANELI LERMA Self - patient is the insured Medical (General) History Medical History History ICD Code Denies MD,DM,CVA,renal disease Chronic hepatitis C--had a l iver biopsy with Dr. Goff at [place]--done at [facility]. Laboratories in 07/2014 showed AST of 70, [...]
[2025-05-19 15:10] VITALS: BP 138/66; PULSE 72; RESP 18; TEMP 36.8; O2SAT 97
[2025-05-19] MEDS: Lidocaine 4 % Patch ADH..PATCH 1 PATCH TRANSDERMA (15:23)
[2025-05-19 15:28] VITALS: BP 138/66; PULSE 72; RESP 18; TEMP 36.8; O2SAT 97
== END 2025-05-19 15:51 | disposition home or self-care (01) ==
PROVIDERS: Emergency Provider Emergency Medicine; PCP Internal Medicine Geriatric Medicine
DX: M62.830 Muscle spasm of back (principal); Z79.899 Other long term (current) drug therapy
CPT/HCPCS: 96372; 99283; 99284; J1885; J8540

== ENCOUNTER 2025-06-02 08:18 | Outpatient (AMB) | payer OTHER, SELFPAY ==
--- NOTE | 2025-06-02 08:45 | A.OFFVIS_ITS ---
Vital Signs 06/02/25 08:50 Height 4 ft 10 in Weight 208 lb 8.917 oz BMI 43.6 BP 134/80 Blood Pressure Location Lt brachial Position Sitting Pulse 74 Pulse Source Pulse Oximeter Pulse Oximetry (%) 98 Oxygen Delivery Method Room Air Intake Visit Reasons: follow up Intake Note: Patient presents today for FMS follow up. Private Branch Exchange Repairer Required: Yes Private Branch Exchange Repairer Language: Solar Installation Foreman Services: Private Branch Exchange Repairer Present Private Branch Exchange Repairer Name: Ebony [id number] Information Interpreted: non-clinical & clinical Accompanied by: Self / Same As Patient Allergies No Known Allergies (No Known Allergies*) Allergy (Verified 06/02/25 08:50) Medication List - Last Reconciled 06/02/25 by Marnie Freeman MD acetaminophen ER (Tylenol Arthritis Pain) 650 mg PO Q8H PRN albuterol sulfate 90 mcg/actuation 2 puffs inhalation Q6H PRN atorvastatin 20 mg PO BEDTIME budesonide 90 mcg/actuation (Pulmicort Flexhaler) 0 inhalations inhalation bupropion HCl XL 150 mg PO QAM capsaicin 0.035% 1 patch topical TID PRN diazepam (Valium) 2 mg PO TID PRN 3 days duloxetine 30 mg PO BEDTIME duloxetine 60 mg PO QAM fluticasone propionate 50 mcg/actuation (Allergy Relief (fluticasone)) 1 spray intranasal DAILY gabapentin 800 mg PO BEDTIME methylprednisolone (Medrol (Leandro)) 4 mg PO DAILY naproxen 500 mg PO BID PRN omeprazole 20 mg PO DAILY quetiapine 50 mg PO BEDTIME spironolactone 50 mg PO DAILY tizanidine 2 mg PO BID PRN valsartan-hydrochlorothiazide 320-25 mg 1 tab PO DAILY HPI Comments Details: Patient is a 59-year-old female with hypertension, depression, asthma, polyarticular osteoarthritis and fibromyalgia here today for follow up Interval History: Patient last seen 12/15/24 with me. - On Gabapentin 800mg nightly and duloxetine 60mg (psychiatry) - Continues to complain of diffuse pain - In particular today, neck pain with muscle tension and associated headache and dizziness - Head imaging ordered Today - On Gabapentin 800mg nightly and duloxetine 90mg (psychiatry) - presenting for a follow-up for fibromyalgia, with main complaints of neck pain and dizziness, which were also present at her last visit in November. - Imaging studies include X-rays of the neck, which showed degenerative disease, and a CT scan of the head in February, which was normal but revealed significant sinus disease. - The patient's dizziness is attributed to her chronic sinus disease, and her neck pain is attributed to the degenerative changes in her cervical spine. - She reports her neck pain is the most uncomfortable symptom. - Regarding her fibromyalgia management, the patient takes gabapentin at night and duloxetine prescribed by her psychiatrist, though she feels the duloxetine is not helping. - She has also experienced pain in her back and right shoulder after lifting something heavy, which was diagnosed at a hospital as a muscular spasm and treated with steroids and a patch. - Her primary care physician also prescribed a medication that provided relief. - Past interventions include physical therapy, which she felt did not result in progress, and use of a TENS machine. Rheumatologic History: polyarticular OA and fibromyalgia Current Rheumatology Medication(s): Gabapentin 800mg nightly Duloxetine 60mg (psychiatry) PFS Medical History HTN (hypertension) Surgical History Hx of hernia repair Hx of tubal ligation Hx of abdominal hysterectomy Hx of section Hx of appendectomy Family History Father Diabetes HTN (hypertension) Mother Breast cancer Osteoporosis Diabetes HTN (hypertension) Brother HTN (hypertension) Social History Alcohol intake: never Patient Tobacco Use Status: Never used Tobacco Current occupational status: disabled Current occupation: rt hand Review of Systems Narrative Review of Systems - Neurological: Reports dizziness. - Musculoskeletal: Reports neck pain, back pain, and right shoulder pain. - Constitutional: Reports generalized pain consistent with fibromyalgia. All other systems reviewed and are unremarkable except noted above Physical Exam Exam Exam: Vital signs reviewed Physical Examination CONSTITUITIONAL Patient alert and cooperative. Well appearing and in no apparent painful distress MSK Hands * Right Hand: Able to make a fist. No swelling or tenderness to palpation of the MCPs, PIPs or DIPs. * Left Hand: Able to make a fist. No swelling or tenderness to palpation of the MCPs, PIPs or DIPs. Wrists * Right Wrist: Full ROM to flexion and extension. No swelling or TTP * Left Wrist: Full ROM to flexion and extension. No swelling or TTP Elbows * Right Elbow: Full ROM. No swelling or TTP. No TTP of the medial epicondyle. No TTP of the lateral epicondyle * Left Elbow: Full ROM. No swelling or TTP. No TTP of the medial epicondyle. No TTP of the lateral epicondyle Shoulders * Right shoulder: Full ROM. No swelling noted. No TTP of the AC joint. TTP of the subacromial bursa. No TTP of the posterior shoulder * Left shoulder: Full ROM. No swelling noted. No TTP of the AC joint. TTP of the subacromial bursa. No TTP of the posterior shoulder Hip bursa: Tenderness to palpation bilaterally Knees * Right knee: Full ROM. No swelling noted. No TTP of the knee joint line. TTP of pes anserine bursa * Left knee: Full ROM. No swelling noted. No TTP of the knee joint line. TTP of pes anserine bursa * Crepitations felt bilaterally Ankles * Right ankle: Good ankle dorsiflexion and plantar flexion. No swelling. No TTP of the ankle joint * Left ankle: Good ankle dorsiflexion and plantar flexion. No swelling. No TTP of the ankle joint Feet * Right foot: Negative squeeze test * Left foot: Negative squeeze test Tender points? * Tenderness to palpation of the bilateral trapezius, supraspinatus, anterior costochondral junctions, bilateral suboccipital muscle insertions SKIN Rosacea rash noted to face Vital Signs: Last Vital Signs Pulse 74 06/02/25 08:50 BP 134/80 06/02/25 08:50 Pulse Ox 98 06/02/25 08:50 Oxygen Delivery Method Room Air 06/02/25 08:50 BMI result Body Mass Index 43.6 Results Reviewed Results Reviewed: Laboratory Tests 01/28/22 10/25/24 13:21 09:54 WBC 7.7 RBC 4.40 Hgb 13.1 Hct 39.7 Plt Count 303 Sodium 141 Potassium 3.6 Chloride 103 Carbon Dioxide 30 H BUN 16 Creatinine 0.77 AST 21 ALT 13 C-Reactive Protein 0.[address] Head 02/2025 FINDINGS: No acute intracranial hemorrhage, mass effect, midline shift, hydrocephalus or herniation. [place]-white matter differentiation is normal. Posterior cranial fossa contents demonstrated no acute hemorrhage or mass effect. Normal position of the cerebellar tonsils. 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 Sellar suprasellar region demonstrated no gross masses. Mucosal thickening in the paranasal sinuses without air-fluid levels in the left maxillary sinus. Tympanic cavities and mastoid cells are aerated. No gross masses or fluid collections in the intraconal or extraconal compartments of the orbits. IMPRESSION: No acute or structural brain abnormality by CT. Acute on chronic pattern paranasal sinus disease. XR C Spine 11/2024 FINDINGS: Craniocervical junction is intact. No acute cortical disruption. Small marginal osteophyte formation C3-4, C4-5 C5-6 and C6-7 levels. 1 mm anterolisthesis C4-5. No lytic or blastic lesions. IMPRESSION: Multilevel cervical spondylosis, mild resulting in grade 1 anterolisthesis C4-5. Assessment & Plan Assessment & Plan (1) Fibromyalgia: Code(s): M79.7 - Fibromyalgia Category: Medical Plan: #Fibromyalgia Patient is a 59-year-old female with polyarticular osteoarthritis and fibromyalgia here today for follow up. The patient continues to experience generalized pain secondary to fibromyalgia and reports that duloxetine is not providing benefit. Gabapentin prescription will be refilled for nighttime use. A new prescription for tizanidine, a muscle relaxant, will be sent to help with muscle spasms, to be taken one tablet twice a day. The patient was counseled that medication will not completely eliminate the pain and that stretching and movement are important. TENS machine therapy was discussed as a future option once the equipment is available in the office. Follow up is scheduled for six months. Plan - Gabapentin 800mg bedtime - Duloxetine (from psychiatry) - Tizanidine 2mg bid #60 - Exercises and stretches - RTC 6 months (2) Neck pain: Code(s): M54.2 - Cervicalgia Plan: #Neck pain The patient's chronic neck pain is her most uncomfortable symptom and is attributed to degenerative disease. A referral to pain management for potential procedures was offered. The patient expressed that she had tried physical therapy in the past without benefit, and no new referral was made. The patient's dizziness is believed to be caused by chronic sinus disease, which was an incidental finding on a recent head CT. No new plan was made regarding this symptom in this visit. Plan I discussed with the patient that her diagnosis is fibromyalgia, which is a chronic pain condition, and that medications will help but are unlikely to completely eliminate her pain. I explained that her neck pain is due to degenerative disease and her dizziness is likely from chronic sinus disease found on her recent CT scan. We discussed treatment options, including continuing gabapentin, which I refilled, and adding tizanidine for muscle spasms. She feels her duloxetine is not effective. I encouraged her to increase stretching and movement. I offered a referral to pain management for her neck, but she was hesitant due to prior unremarkable experiences with physical therapy. I also mentioned that we are working on getting a TENS machine for the office, which could be an option for her in the future. I will see her for follow-up in six months. I spent 35 minutes reviewing the record and labs, taking a history, examining the patient, discussing the treatment plan, explaining findings, answering questions, ordering diagnostic work up and documenting in the medical record Medications: Refilled tizanidine 2 mg PO BID PRN 60 tabs 0RF muscle spasticity gabapentin 800 mg PO BEDTIME 90 tabs 1RF M79.7 - Fibromyalgia Discontinued diazepam (Valium) Discontinued Reason: Doctor's Order 2 mg PO TID 3 days PRN 10 tabs 0RF spasms methylprednisolone (Medrol (Leandro)) Day 1: 24 mg on day 1 administered as 8 mg before breakfast, 4 mg after lunch, 4 mg after supper, and 8 mg at bedtime or 24 mg as a single dose or divided into 2 or 3 doses upon initiation. Day 2: 20 mg on day 2 administered as 4 mg before breakfast, 4 mg after lunch, 4 mg after supper, and 8 mg at bedtime. Day 3: 16 mg on day 3 administered as 4 mg before breakfast, 4 mg after lunch, 4 mg after supper, and 4 mg at bedtime. Day 4: 12 mg on day 4 administered as 4 mg before breakfast, 4 mg after lunch, and 4 mg at bedtime. Day 5: 8 mg on day 5 administered as 4 mg before breakfast and 4 mg at bedtime. Day 6: 4 mg on day 6 administered as 4 mg before breakfast. Discontinued Reason: Patient Completed Course 4 mg PO DAILY 21 ea 0RF Coding Level of Care Code Est Pt Level 4 (52197) Diagnoses Fibromyalgia M79.7 Neck pain M54.2
[2025-06-02 08:50] VITALS: BP 134/80; PULSE 74; O2SAT 98; BMI 43.6
== END 2025-06-02 09:22 | disposition home or self-care (01) ==
LOC: HO.RHES 08:19
PROVIDERS: PCP Internal Medicine Geriatric Medicine; Visit Provider Student in an Organized Health Care Education/Training Program
DX: M79.7 Fibromyalgia (principal); M54.2 Cervicalgia
CPT/HCPCS: 99214

== ENCOUNTER → 2025-06-02 08:18 | Outpatient (BNVA) | payer OTHER, SELFPAY | PROVIDERS: PCP Internal Medicine Geriatric Medicine; Visit Provider Student in an Organized Health Care Education/Training Program | DX: M79.7 Fibromyalgia (principal); M54.2 Cervicalgia; G89.29 Other chronic pain; Z79.899 Other long term (current) drug therapy | CPT/HCPCS: 99212 ==

== ENCOUNTER 2025-06-20 08:35 | Outpatient (AMB) | payer OTHER, SELFPAY ==
--- NOTE | 2025-06-20 08:53 | MHC.OFFVIS ---
Vital Signs 06/20/25 09:04 Height 4 ft 10 in Weight 206 lb 10 oz BMI 43.2 BP 90/60 Blood Pressure Location Rt brachial Position Sitting Pulse 80 Pulse Source Pulse Oximeter Pulse Oximetry (%) 97 Oxygen Delivery Method Room Air Intake Visit Reasons: colo screen Intake Note: New pt for second colo screening. Hx of EGD w/ Dr. Ramirez. Mgmt of GERD w/ Schatzki's ring. Last colo @ 49 Y.O. CC; Pt denies any GI sx or concerns at this time. Manager Massage Department Required: Yes Manager Massage Department Services: Manager Massage Department Present Manager Massage Department Name: [place] [id number] + Kofi (GI) Information Interpreted: clinical only Accompanied by: Self / Same As Patient Allergies No Known Allergies (No Known Allergies*) Allergy (Verified 06/20/25 08:54) HPI HPI colo screen: Details: 59 year old? female here today for pre colonoscopy screening.? Patient was sent to us by her PCP.? Last colonoscopy about 10 years ago.? Patient denies any gastrointestinal symptoms in the past or at present.? Denies any personal or family history of gastrointestinal disease, colon polyps, or CRC.? Denies history of difficulty with sedation or anesthesia in the past.? Negative for history of sleep apnea.? Denies any history of cardiac, renal, pulmonary, or hepatic disease.?? No history of infectious? diseases like hepatitis A, B, C, HIV or tuberculosis.? Patient is not on any anticoagulation [facility] Medical History Schatzki's ring HTN (hypertension) Surgical History (Updated 06/20/25 @ 09:19 by ARCADIO Finney) H/O colonoscopy History of esophagogastroduodenoscopy (EGD) Hx of hernia repair Hx of tubal ligation Hx of abdominal hysterectomy Hx of section Hx of appendectomy Family History Father Diabetes HTN (hypertension) Mother Breast cancer Osteoporosis Diabetes HTN (hypertension) Brother HTN (hypertension) Social History Alcohol intake: never Patient Tobacco Use Status: Never used Tobacco Current occupational status: disabled Current occupation: rt hand Review of Systems Const Denies weight gain and Denies weight loss ENT Reports no additional complaints, Denies dysphagia and Denies odynophagia Card Reports no additional complaints Resp Reports no additional complaints GI Denies abdominal pain, Denies belching, Denies melena, Denies bloating, Denies change in bowel habits, Denies dysphagia, Denies excessive flatus, Denies dyspepsia, Denies heartburn, Denies diarrhea, Denies loose stools, Denies nausea, Denies odynophagia and Denies vomiting Musc Reports no additional complaints Neuro Reports no additional complaints Psych Reports no additional complaints Endo Reports no additional complaints Physical Exam Vital Signs: Last Vital Signs Pulse 80 06/20/25 09:04 BP 90/60 06/20/25 09:04 Pulse Ox 97 06/20/25 09:04 Oxygen Delivery Method Room Air 06/20/25 09:04 BMI result Body Mass Index 43.2 Const General: healthy appearing and no acute distress Nutritional Appearance: obese Orientation/consciousness: patient oriented x3 Resp Effort & Inspection: normal respiratory effort, able to speak in complete sentences, no tracheal deviation and symmetric chest movement Auscultation: clear to auscultation bilaterally Cardio Rate: regular rate GI Inspection: Yes normal to inspection, No distended and Yes obesity Palpation (GI): Soft to palpation, not firm, nontender and No hepatosplenomegaly present Auscultation: normal bowel sounds General: Yes no CVA tenderness Back/Spine/Pelvis Back: no CVA tenderness Skin General skin exam: elasticity normal, turgor normal and dry skin Neuro General: patient oriented x3 Psych Appearance: grossly normal Mental Status: mental status grossly normal Assessment & Plan Assessment & Plan (1) Screen for colon cancer: Code(s): Z12.11 - Encounter for screening for malignant neoplasm of colon Plan Patient denies any GI, cardiac or respiratory symptoms.? Uses omeprazole as needed. Denies any issues with anesthesia in the past.? Denies any history of sleep apnea.? No history infectious diseases in the past or present.? Not on any anticoagulation therapy.? No family or personal history of colon cancer or polyps.? Patient denies melena, hematochezia, unintentional weight loss or ribbon like stools.? Discussed at length the pre-procedure,? prep, diet & medications as well as what to expect prior, during and after the procedure.?? Stressed the importance of good bowel prep.? Recommended the use of Vaseline or Calmoseptine OTC & baby wipes with bowel movements to promote comfort.? ?Patient verbalizes understanding and agrees to plan of care.? She was given the opportunity to ask questions and all questions answered.? We will see her after the procedure.? Orders: Referrals GI Procedure Notification Z12.11 - Encounter for screening for malignant neoplasm of colon Medications: New bisacodyl (Dulcolax (bisacodyl)) take 4 tabs at noon the day before your colonoscopy 20 mg (4 x 5 mg) PO ONCE 4 tabs 0RF constipation 1 day Z12.11 - Encounter for screening for malignant neoplasm of colon polyethylene glycol 3350 (Miralax) As directed by gastroenterology department at [facility] 238 grams PO ONCE 238 grams 0RF Z12.11 - Encounter for screening for malignant neoplasm of colon Coding Level of Care Code New Pt Level 3 (60139) Diagnoses Screen for colon cancer Z12.11 Time Spent (min) 40 Comment 30 minutes spent with patient and additional 10 minutes spent reviewing her records
[2025-06-20 09:04] VITALS: BP 90/60; PULSE 80; O2SAT 97; BMI 43.2
--- OUTSIDE RECORDS SUMMARY | 2025-06-20 10:15 | XMS_ITS | Patient Health Record ---
Author Organization [facility] Address [address] [place] [address] Care Team Providers Care Assistant Director Of Admissions Name Role Phone MaliTatiana crowder Primary Care Provider Jose Carlos Yadav Unavailable [phone] Reason For Referral No Information Medications Medication [...] BY MOUTH EVERY DAY Oral; Duration: 30 Not-Taking/OH N Anaprox DS 550 MG Tablet 1 [...] TABLET AT BEDTIME Oral; Duration: 30 Not-Taking/PRN [id number] 50-325-40 MG Capsule 1 capsule as needed [...] Problem Screening for malignant neoplasm of colon (621557402) Encounter for screening for malignant neoplasm of colon (Z12.11) Active confirmed Problem Irritable bowel syndrome with diarrhea (220798068) Irritable bowel syndrome with diarrhea (K58.0) Active confirmed Problem Chronic hepatitis C (033065694) Chronic hepatitis C without hepatic coma (B18.2) Active confirmed Problem Chronic hepatitis C (321324861) Chronic hepatitis C (B18.2) Active confirmed Problem Elevated liver enzymes level (680487728) Elevated liver enzymes (R74.8) Active confirmed Problem Gastroesophageal reflux disease (468020864) Gastroesophageal reflux disease, esophagitis presence not specified [...] Start Date Coverage End Date MEDICAID OF [facility] [address] [place] [phone] [id number] YANELI LERMA Self - patient is the insured Medical (General) History Medical History History ICD Code Denies MD,DM,CVA,renal disease Chronic hepatitis C--had a l iver biopsy with Dr. Goff at [place]--done at [facility]. Laboratories in 07/2014 showed AST [...]
--- OUTSIDE RECORDS SUMMARY | 2025-06-20 10:15 | XMS_ITS | Clinical Summary ---
Author Organization [employer] Address [address] [facility] [address] [place] [address] Care Team Providers Care Lapidary Apprentice Name Role Phone Name, Ron OLIVEROS Primary Care Provider [phone] Allergies No known active allergies Medications atorvastatin (Lipitor) 20 MG tablet Take 20 mg by mouth at bedtime. 5 Active albuterol 108 (90 Base) MCG/ACT inhaler 5 Active buPROPion XL (Wellbutrin XL) 150 MG 24 hr tablet Take 1 tablet by mouth Once per day. 5 Active DULoxetine (Cymbalta) [address] capsule take 1 capsule by mouth every day in the morning 5 Active montelukast (Singulair) 10 MG tablet 5 Active gabapentin (Neurontin) 800 MG tablet Take 800 mg by mouth at bedtime. 5 Active omeprazole (PriLOSEC) [address] capsule Take 1 capsule by mouth Once per day. 5 Active QUEtiapine (SEROquel) 50 MG tablet Take 50 mg by mouth if needed at bedtime. 5 Active spironolactone (Aldactone) 50 MG tablet Take 1 tablet by mouth Once per day. 5 Active valsartan-hydro CHLOROthiazide (Diovan-HCT) 320-25 MG tablet Take 1 tablet by mouth Once per day. 5 Active Tirzepatide-Duran ght Management (Zepbound) 2.5 MG/0.5ML solution auto-injector Inject 0.5 mL (2.5 mg) under the skin 1 (one) time per week. 2 mL 5 06/22/19 26 Active naproxen (Naprosyn) 500 MG tablet Take 1 tablet by mouth 2 times daily. 5 05/23/20 25 Discontinue d(Therapy completed) celecoxib (CeleBREX) 200 MG capsule Take 1 capsule (200 mg) by mouth 2 times daily for 10 days. 20 capsule 5 06/02/20 25 Active Problems Problem Noted Date Diagnosed Date Class 2 severe obesity with body mass index (BMI) of 35 to 39.9 with serious comorbidity 04/26/2025 Encounter for screening for malignant neoplasm o f colon 04/25/2025 Gastroesophageal reflux disease 04/25/2025 Irritable bowel syndrome with diarrhea History of hepatitis C 10/26/2024 Overview (10/26/2024): Images from the original note were not included. Primary hypertension 10/18/2024 Morbid obesity (CMS/HCC) 10/18/2024 High cholesterol 10/18/2024 Mood disorder 10/18/2024 Chronic back pain 10/18/2024 Fibromyalgia 10/18/2024 Asthma 10/18/2024 History of rheumatoid arthritis 10/18/2024 Osteoarthritis of multiple joints 10/18/2024 Resolved Problems Problem Noted Date Diagnosed Date Resolved Date Chronic hepatitis C virus infection (CMS/HCC) 04/25/20 25 04/26/2025 Elevated liver enzymes 04/25/202504/26 Encounters Date Type Department Care Team Description 05/23/2025 10:00 AM EST Office Visit [facility] [address] [place] [id number] Ron Nelson MD Class 3 severe obesity due to excess calories with serious comorbidity and body mass index (BMI) of 40.0 to 44.9 in adult (HCC) (Primary Dx); Primary osteoarthritis involving multiple joints; Prediabetes; Neck strain, subsequent encounter; Vaccine refused by patient 05/23/[address] [address] Ron Nelson MD 05/23/2025 Travel 04/26/2025 11:30 AM EST Office Visit [address] [address] Ron Nelson MD Class 2 severe obesity with body mass index (BMI) of 35 to 39.9 with serious comorbidity (Primary Dx); Primary osteoarthritis involving multiple joints; Fibromyalgia; Vaccine refused by patient 04/26/2025 Abstract [facility] [address] [place] [address] Ron Nelson MD 04/26/2025 Travel 04/25/2025 Telephone [facility] [address] [place] [address] Arlene Barnes MA chart prep 03/30/2025 1:20 PM EDT Office Visit [facility] [address] [place] [address] Flor Macias FNP Bacterial conjunctivitis (Primary Dx); Primary hypertension 03/30/2025 Travel from Last 3 Months Immunizations Immunization Administration Dates Next Due Hep A, Adult 11/21/2011,05/23/2011 Hep B, adult 11/21/2011,06/27/2011,05/23/2011 Influenza, IIV3, injectable 02/27/2012, 1 Moderna Covid-19 Vaccine 12+ 10/02/2020 Tdap 02/03/2025,11/23/2009 Social History Tobacco Use Types Packs/Day Years Used Date Smoking Tobacco: Never Smokeless Tobacco: Never Tobacco Cessation:Counseling Given: Not Answered Alcohol Use Standard Drinks/Week Comments Defer 0 [...] Sign Reading Time Taken Comments Blood Pressure 122/84 05/23/2025 9:44 AM EST Pulse 83 05/23/2025 9:44 AM EST Temperature 36.1 C (97 F) 05/23/2025 9:44 AM EST Respiratory Rate 18 05/23/2025 9:44 AM EST Oxygen Saturation 97% 05/23/2025 9:44 AM EST Inhaled Oxygen Concentration - - Weight 95.1 kg (209 lb 9.6 oz) 05/23/2025 9:44 A M EST Height 147.3 cm (4' 10 ) 05/23/2025 9:44 AM EST Body Mass Index 43.81 05/23/2025 9:44 AM EST Plan of Treatment Upcoming Encounters Date Type Department Care Team (Late st Contact Info) Description 07/04/2025 3:00 PM EST Nutrition [facility] [address] [place] [address] [place] [address] Health Maintenance Due Date Last Done Comments CT Colonography 1964 Colonoscopy 1964 Colorectal Cancer Screening 1964 FIT DNA/Cologuard 1964 FIT 1964 FOBT 1964 HIV Screening 1964 Sigmoidoscopy 1964 Pneumococcal Vaccine: 50+ Years (1 of 2 - PCV) 10/01/1983 Pap Smear 1985 HPV/Cotest 1994 RSV Patients and Patients Aged 60 years or older (1 - Risk 50-74 years 1-dose series) 2014 Zoster Vaccines (1 of 2) 2014 COVID-19 Vaccine (3 - 2024-2 6 season) 2025 10/02/2020, 09/26/2020 Influenza Vaccine (#1) 2025 2, 03/14/2011 Depression Monitoring 04/19/2025 10/18/2024 , 10/18/2024 Alcohol/Substance Use Screening 10/18/2025 10/18/2024 Disability Screening 10/18/2025 10/18/2024 SDOH Screening 10/18/2025 10/18/2024 Diabetes: Hemoglobin A1C 04/26/2026 04/26/2025 Tobacco Screening 05/23/2026 05/23/2025 Mammogram 04/20/2027 04/20/2025 Lipid Panel 10/25/2029 10/25/2024 DTaP/Tdap/Td Vaccines (3 - T d or Tdap) 02/03/2035 02/03/2025, 11/23/2009 Hepatitis A Vaccines Completed 11/21/2011, 05/23/2011 Hepatitis B Vaccines Completed 11/21/2011, 06/27/2011, 05/23/2011 Cervical Cancer Screening Discontinued HIB Vaccines Aged Out No longer eligi ble based on patient's age to complete this topic HPV Vaccines Aged Out No longer eligi ble based on patient's age to complete this topic IPV Vaccines Aged Out No longer eligi ble based on patient's age to complete this topic Meningococcal B Vaccine Aged Out No l onger eligible based on patient's age to complete this topic Meningococcal Vaccine Aged Out No leila ruby eligible based on patient's age to complete this topic RSV under 20 months Aged Out No longe r eligible based on patient's age to complete this topic Rotavirus Vaccines Aged Out No longer eligible based on patient's age to complete this topic Procedures Procedure Name Priority Date/Time Associated Diagnosis Comments HEMOGLOBIN A1C Routine 04/26/2025 12:24 PM EST Class 2 severe obesity with body mass index (BMI) of 35 to 39.9 with serious comorbidity MAMMOGRAPHY Routine 04/20/2025 LIPID PANEL, STANDARD Routine 10/25/2024 9:54 AM EDT Primary hypertension Morbid obesity (CMS/HCC) High cholesterol Mood disorder (CMS/HCC) Chronic back pain, unspecified back location, unspecified back pain laterality Asthma, unspecified asthma severity, unspecified whether complicated, unspecified whether persistent History of rheumatoid arthritis Fibromyalgia Osteoarthritis of multiple joints, unspecified osteoarthritis type from Last 3 Months or Most Recently Relevant to Health Maintenance Results * Hemoglobin A1c (04/26/2025 12:24 PM EST) Hemoglobin A1c 5.9 <6.0 % [facility] Comment:Hemoglobin A1C Refer ence Range Adults: 4.8 - 6.0 % Non diabetic: < 6.0 % Goal: < 7.0 %Additional Action Suggested: > 8.0 %Note: Hemoglobin A1c results are invalid for patients with abnormal amounts of HbF. Blood transfusions may impact the HbA1c concentration in the patient sample. Estimated Average Glucose 123 mg/dL [facility] Comment:eAG = Estimated ave rage glucose which is %A1C expressed asaverage glucose, using the formula of the [id number] Glucose study (ADAG), Diabetes Care, Vol.31,#8,Jan. 2007 Blood Venous blood specimen / Unknown 04/26/2025 12:24 PM EST 04/26/2025 1:23 PM EST us Ron Nelson MD LAB BLOOD ORDERABLES Final Resul t [facility] [address] [place] [phone] * Mammography (04/20/2025) Mammogram Normal Normal, Abnormal, BIRADS 1 , BIRADS 2 Anatomical Region Laterality Modality Other us Ron Nelson MD HEALTH MAINTENANCE Final Result * (ABNORMAL) Lipid Panel, Standard (10/25/2024 9:54 AM EDT) Triglycerides 95 <150 mg/dL [facility] Comment:Desirable Triglyceri de: less than 150 mg/dLBorderline High Triglyceride 150-199 mg/dLHigh Triglyceride: 200-499 mg/dLVery High Triglyceride: greater than or equal to 5OO mg/dL Cholesterol 207(H) <200 mg/dL [facility] Comment:Desirable Cholestero l: less than 200 mg/dLBorderline High Cholesterol: 200-239 mg/dLHigh Cholesterol: greater than 239 mg/dL LDL Cholesterol Calculated 136(H) <100 mg/dL [facility] Comment:Desirable LDL: less than 100 mg/dLNear Optimal/Above Optimal LDL: 110- 129 mg/dLBorderline High LDL: 130-159 mg/dLHigh LDL: 160-189 mg/dLVery High LDL: greater than or equal to 190 mg/dL HDL Cholesterol 52 >40 mg/dL [facility] Comment:Desirable HDL: great er than 40 mg/dL Note: This HDL assay may give artificially low results in patients with liver disease. Blood Venous blood specimen / Unknown 10/25/2024 9:54 AM EDT 10/25/2024 11:07 AM EDT us Ron Name LAB BLOOD ORDERABLES Final Resul t [facility] [address] [place] [phone] from Last 3 Months or Most Recently Relevant to Health Maintenance Insurance [facility] STAND[employer] < 65 Care Teams Lapidary Apprentice Relationship Specialty Start Date End Date Name, MD Ron [address] [place] [id number] PCP - General Internal Medicine 10/18/24
== END 2025-06-20 09:28 | disposition home or self-care (01) ==
PROVIDERS: PCP Internal Medicine Geriatric Medicine; Visit Provider Nurse Practitioner Family
DX: Z01.818 Encounter for other preprocedural examination (principal); Z12.11 Encounter for screening for malignant neoplasm of colon
CPT/HCPCS: 99024

== ENCOUNTER → 2025-06-20 08:35 | Outpatient (BNVA) | payer OTHER, SELFPAY | PROVIDERS: PCP Internal Medicine Geriatric Medicine; Visit Provider Nurse Practitioner Family | DX: Z12.11 Encounter for screening for malignant neoplasm of colon (principal) | CPT/HCPCS: 99212 ==